=== PATIENT | male | born 1940 | race African-American/Black ===

== ENCOUNTER 2018-05-17 11:21 | Inpatient (IN) | payer MEDICARE, MEDICAID ==
[~2018-05-17] VITALS: Ht 167.6 cm; Wt 79.8 kg
[2018-05-17 11:25] VITALS: BP 145/65
[2018-05-17] MEDS ORDERED: DEXILANT60 MG ORAL (11:29)
[2018-05-17] MEDS ORDERED: COLCRYS0.6 M1 PO (11:29)
[2018-05-17] MEDS ORDERED: CYMBALTA30 MG ORAL (11:29)
[2018-05-17] MEDS ORDERED: TRULICITY1.5 MG/0.5 SQ (11:29)
[2018-05-17] MEDS ORDERED: LANTUS SOL100 UNIT/1 SUBQ (11:29)
[2018-05-17] MEDS ORDERED: LYRICA75 M1 ORAL (11:29)
[2018-05-17] MEDS ORDERED: BACLOFEN20 MG ORAL (11:29)
[2018-05-17] MEDS ORDERED: COZAAR50 MG ORAL (11:31)
[2018-05-17] MEDS ORDERED: NORVASC10 MG ORAL (11:31)
[2018-05-17] MEDS ORDERED: STRATTERA 25MG25 MG ORAL (11:41)
[2018-05-17] MEDS ORDERED: REQUIP1 MG ORAL (11:41)
[2018-05-17] MEDS ORDERED: CARDURA4 MG ORAL (11:41)
[2018-05-17] MEDS ORDERED: LIPITOR20 MG ORAL (11:46)
[2018-05-17] MEDS ORDERED: HUMALOG100 UNIT/3 SUBQ (11:46)
[2018-05-17] MEDS ORDERED: WARFARIN SODIUM5 MG ORAL (11:46)
[2018-05-17] MEDS ORDERED: NOVOLOG100 UNIT/3 SUBQ (11:46)
[2018-05-17] MEDS ORDERED: ULORIC40 MG ORAL (11:46)
[2018-05-17] MEDS ORDERED: HYDRALAZINE HCL50 MG ORAL (11:46)
[2018-05-17] MEDS ORDERED: JANUMET XR 1001 EACH ORAL (11:46)
[2018-05-17] MEDS ORDERED: Sodium Chloride 500ML 500 ML IV ONE (11:49)
[2018-05-17 12:00] VITALS: BP 145/65
[2018-05-17] MEDS ORDERED: Nitroglycerin Subl 0.4mg tab SL PRN ×2 (12:00→14:30)
[2018-05-17 12:05] LABS: BASOPHILS % (AUTO) 1.1 % (0.0-2.0); EOSINOPHILS % (AUTO) 3.4 % (0.0-3.0); HEMATOCRIT 36.4 % (42.0-52.0); HEMOGLOBIN 12.6 G/DL (14.2-18.0); MEAN CORPUSCULAR VOLUME 89 FL (80-99); MONOCYTES % (AUTO) 7.8 % (1.0-10.0); NEUTROPHILS % (AUTO) 59.6 % (45.0-75.0); PLATELET COUNT 140 K/UL (150-450); RED BLOOD COUNT 4.11 M/UL (4.70-6.10); RED CELL DISTRIBUTION WIDTH 11.2 % (11.6-14.8); WHITE BLOOD COUNT 4.5 K/UL (4.8-10.8)
--- NOTE | 2018-05-17 12:23 | Diagnostic Imaging Report ---
Indication: Dyspnea Comparison: 11/18/2007 A single view chest radiograph was obtained. Findings: Cardiomediastinal appearance is within normal limits for age. Pulmonary vascularity is appropriate. The diaphragmatic contour is smooth and costophrenic angles are sharp. No pleural effusions are identified. The bones are unremarkable. Impression: No acute findings
[2018-05-17 12:28] LABS: ALANINE AMINOTRANSFERASE 36 U/L (12-78); ALBUMIN 2.8 G/DL (3.4-5.0); ALBUMIN/GLOBULIN RATIO 0.7 (1.0-2.7); ALKALINE PHOSPHATASE 130 U/L (46-116); ANION GAP 9 mmol/L (5-15); ASPARTATE AMINO TRANSFERASE 20 U/L (15-37); BILIRUBIN,TOTAL 0.4 MG/DL (0.2-1.0); BLOOD UREA NITROGEN 24 mg/dL (7-18); CARBON DIOXIDE 25 MMOL/L (21-32); CHLORIDE 101 MMOL/L (98-107); CREATININE 1.9 MG/DL (0.55-1.30); POTASSIUM 3.4 MMOL/L (3.5-5.1); SODIUM 135 MMOL/L (136-145)
[2018-05-17] MEDS ORDERED: Insulin Human Regular 100units/ml 3ml IV ONE (12:45)
[2018-05-17] MEDS ORDERED: NS w/KCl 40mEq 1,000 ML IV SCH (12:45)
[2018-05-17 13:01] LABS: APPEARANCE,URINE CLEAR; BILIRUBIN, URINE NEGATIVE (NEGATIVE); COLOR,URINE PALE YELLOW; GLUCOSE, URINE (UA) 4+ (NEGATIVE); KETONES,URINE NEGATIVE (NEGATIVE); LEUKOCYTE ESTERASE ,URINE NEGATIVE (NEGATIVE); NITRITE,URINE NEGATIVE (NEGATIVE); PH,URINE 6 (4.5-8.0); PROTEIN,URINE 3+ (NEGATIVE); UROBILINOGEN,URINE NORMAL MG/DL (0.0-1.0)
[2018-05-17 13:21] VITALS: BP 151/69
[2018-05-17] MEDS ORDERED: Miralax 17gm pkt ORAL PRN (14:30)
[2018-05-17] MEDS ORDERED: Enalaprilat 2.5mg/2ml Inj IV PRN (14:30)
[2018-05-17] MEDS ORDERED: Ketorolac 30mg Inj IV PRN (14:30)
[2018-05-17] MEDS ORDERED: Albuterol/Ipratropium 3ml neb HHN PRN (14:30)
[2018-05-17] MEDS ORDERED: dilTIAZem HCl 25mg/5ml Inj IV PRN (14:30)
--- NOTE | 2018-05-17 14:32 | Emergency Room Report ---
History of Present Illness General Chief Complaint: Dizziness Source: Patient, Medical Record, EMS Present Illness HPI 78-year-old male presents ED for evaluation. Patient had adult daycare today when started to feel dizzy and felt chest tightness. Denies any chest pain. Notes midsternal area for chest tightness. Denies shortness of breath. Accu- Chek critically high. History of diabetes. Denies fevers or chills. No other aggravating relieving factors. Denies any other associated symptoms Allergies: Coded Allergies: No Known Allergies (Verified , 11/16/07) Patient History Past Medical History: none, DM, HTN Past Surgical History: none Pertinent Family History: none Social History: Denies: smoking, alcohol use, drug use Immunizations: UTD Reviewed Nursing Documentation: PMH: Agreed; PSxH: Agreed Nursing Documentation-PMH Hx Cardiac Problems: Yes - ckd,kieran lower ext edema,gout,pvd Hx Hypertension: Yes Hx Diabetes: Yes Review of Systems All Other Systems: negative except mentioned in HPI Physical Exam Vital Signs Date Time Temp Pulse Resp B/P (MAP) Pulse Ox O2 Delivery O2 Flow Rate FiO2 05/17/18 11:11 98.1 90 18 160/80 99 Room Air 98.1 Sp02 EP Interpretation: reviewed, normal General Appearance: no apparent distress, alert, GCS 15, non-toxic Head: normocephalic, atraumatic Eyes: bilateral eye normal inspection, bilateral eye PERRL ENT: hearing grossly normal, normal pharynx, no angioedema, normal voice Neck: full range of motion, supple/symm/no masses Respiratory: chest non-tender, lungs clear, normal breath sounds, speaking full sentences Cardiovascular #1: regular rate, rhythm, no edema Cardiovascular #2: 2+ carotid (R), 2+ carotid (L), 2+ radial (R), 2+ radial (L) , 2+ dorsalis pedis (R), 2+ dorsalis pedis (L) Gastrointestinal: normal bowel sounds, non tender, soft, non-distended, no guarding, no rebound Rectal: deferred Genitourinary: normal inspection, no CVA tenderness Musculoskeletal: back normal, gait/station normal, normal range of motion, non- tender Neurologic: alert, oriented x3, responsive, motor strength/tone normal, sensory intact, speech normal Psychiatric: judgement/insight normal, memory normal, mood/affect normal, no suicidal/homicidal ideation Reflexes: 3+ bicep (R), 3+ bicep (L), 3+ tricep (R), 3+ tricep (L), 3+ knee (R) , 3+ knee (L) Skin: normal color, no rash, warm/dry, well hydrated Lymphatic: no adenopathy Medical Decision Making Diagnostic Impression: Primary Impression: ACS (acute coronary syndrome) Additional Impressions: Hyperglycemia Renal insufficiency ER Course Hospital Course 78-year-old male presents ED complaining of chest tightness, dizziness, critically high accucheck Differential diagnoses include: LA/unstable angina, contusion, muscle strain, DKA Clinical course Patient placed on stretcher. on quality assurance monitor. After initial history and physical I ordered labs, EKG, chest x-ray, IVFs, NTG x 3 labs reviewed- no leukocytosis, hb/hct stable, BUN/Cr elevated, gluocse > 500 no DKA (bicarb, AG ok), trop negative EKG - NSR, no acute ischemic changes interpreted by me Chest x-ray- no acute process Patient given IV fluids. Given aspirin. Given insulin Case discussed with Dr. Ragland and he agreed to accept the patient to his service for further care and support I. I feel this is a highly complex case requiring extensive working including EKG/Rhythm strip, Xray/CT/US, Blood/urine lab work, repeat exams while in ED, and administration of strong opiates/narcotics for pain control, admission to hospital or close patient follow up. Diagnosis - ACS, hyperglycemia admitted to telemetry in serious condition Labs Test 05/17/18 11:38 05/17/18 12:29 White Blood Count 4.5 K/UL (4.8-10.8) Red Blood Count 4.11 M/UL (4.70-6.10) Hemoglobin 12.6 G/DL (14.2-18.0) Hematocrit 36.4 % (42.0-52.0) Mean Corpuscular Volume 89 FL (80-99) Mean Corpuscular Hemoglobin 30.7 PG (27.0-31.0) Mean Corpuscular Hemoglobin Concent 34.6 G/DL (32.0-36.0) Red Cell Distribution Width 11.2 % (11.6-14.8) Platelet Count 140 K/UL (150-450) Mean Platelet Volume 9.0 FL (6.5-10.1) Neutrophils (%) (Auto) 59.6 % (45.0-75.0) Lymphocytes (%) (Auto) 28.0 % (20.0-45.0) Monocytes (%) (Auto) 7.8 % (1.0-10.0) Eosinophils (%) (Auto) 3.4 % (0.0-3.0) Basophils (%) (Auto) 1.1 % (0.0-2.0) Sodium Level 135 MMOL/L (136-145) Potassium Level 3.4 MMOL/L (3.5-5.1) Chloride Level 101 MMOL/L (98-107) Carbon Dioxide Level 25 MMOL/L (21-32) Anion Gap 9 mmol/L (5-15) Blood Urea Nitrogen 24 mg/dL (7-18) Creatinine 1.9 MG/DL (0.55-1.30) Estimat Glomerular Filtration Rate mL/min (>60) Glucose Level 518 MG/DL (74-106) Calcium Level 8.0 MG/DL (8.5-10.1) Magnesium Level 2.1 MG/DL (1.8-2.4) Total Bilirubin 0.4 MG/DL (0.2-1.0) Aspartate Amino Transf (AST/SGOT) 20 U/L (15-37) Alanine Aminotransferase (ALT/SGPT) 36 U/L (12-78) Alkaline Phosphatase 130 U/L (46-116) Troponin I 0.000 ng/mL (0.000-0.056) Pro-B-Type Natriuretic Peptide 720 pg/mL (0-125) Total Protein 6.6 G/DL (6.4-8.2) Albumin 2.8 G/DL (3.4-5.0) Globulin 3.8 g/dL Albumin/Globulin Ratio 0.7 (1.0-2.7) Acetone Level Negative (NEGATIVE) Urine Color Pale yellow Urine Appearance Clear Urine pH 6 (4.5-8.0) Urine Specific [place] 1.015 (1.005-1.035) Urine Protein 3+ (NEGATIVE) Urine Glucose (UA) 4+ (NEGATIVE) Urine Ketones Negative (NEGATIVE) Urine Occult Blood 2+ (NEGATIVE) Urine Nitrite Negative (NEGATIVE) Urine Bilirubin Negative (NEGATIVE) Urine Urobilinogen Normal MG/DL (0.0-1.0) Urine Leukocyte Esterase Negative (NEGATIVE) Urine RBC 5-10 /HPF (0 - 0) Urine WBC 0-2 /HPF (0 - 0) Urine Squamous Epithelial Cells Occasional /LPF Urine Bacteria Occasional /HPF (NONE) EKG Diagnostic Results Rate: normal Rhythm: NSR ST Segments: no acute changes ASA given to the pt in ED: Yes Rhythm Strip Diag. Results EP Interpretation: yes Rhythm: NSR, no PVC's, no ectopy Chest X-Ray Diagnostic Results Chest X-Ray Diagnostic Results : Chest X-Ray Ordered: Yes # of Views/Limited/Complete: 1 View Indication: Chest Pain EP Interpretation: Yes Interpretation: no consolidation, no effusion, no pneumothorax, no acute cardiopulmonary disease Impression: No acute disease Electronically Signed by: Electronically signed by Edilson Stoner MD Last Vital Signs Date Time Temp Pulse Resp B/P (MAP) Pulse Ox O2 Delivery O2 Flow Rate FiO2 05/17/18 13:21 98.7 71 18 151/69 98 Room Air 98.7 Status: improved Disposition: ADMITTED INPATIENT Condition: Serious Referrals: NON PHYSICIAN (PCP) Edilson Stoner MD May 17, 2018 14:32
[2018-05-17] MEDS: Morphine Sulfate 2mg/ml Inj IVP PRN ×2 (15:16→23:29)
--- NOTE | 2018-05-17 18:09 | History & Physical ---
History and Physical History & Physicial Dictated for Int Med-Dr Ragland no. [id number]. Krunal Rose MD May 17, 2018 18:09
[2018-05-17] MEDS: NovoLOG Insulin Flexpen SUBQ SCH ×2 (18:18→20:56)
--- NOTE | 2018-05-17 19:05 | Consultation ---
History of Present Illness General Date patient seen: May 17, 2018 Time patient seen: 18:25 Chief Complaint: Dizziness Present Illness HPI 78 year old male comes to ER for dizziness and chest pain, initial glucose 500, troponin normal, CXR negative acute process. Hx of CKD, DM, PVD, LE edema. Allergies: Coded Allergies: No Known Allergies (Verified , 11/16/07) Medication History Scheduled Amlodipine Besylate (Norvasc), 10 MG ORAL DAILY, (Reported) Atorvastatin Calcium* (Lipitor*), 20 MG ORAL DAILY, (Reported) Baclofen* (Lioresal*), 10 MG ORAL DAILY, (Reported) Colchicine (Colcrys), 0.6 MG PO DAILY, (Reported) Dexlansoprazole (Dexilant), 60 MG ORAL DAILY, (Reported) Doxazosin Mesylate* (Cardura*), 8 MG ORAL DAILY, (Reported) Duloxetine Hcl* (Cymbalta*), 30 MG ORAL DAILY, (Reported) Febuxostat (Uloric), 40 MG ORAL DAILY, (Reported) Hydralazine Hcl* (Hydralazine Hcl*), 50 MG ORAL BID, (Reported) Insulin Glargine (Lantus), 0 SUBQ BEDTIME, (Reported) Losartan Potassium* (Cozaar*), 100 MG ORAL DAILY, (Reported) Nebivolol HCl (Bystolic), 20 MG ORAL DAILY, (Reported) Pregabalin* (Lyrica*), 75 MG ORAL DAILY, (Reported) Ropinirole Hcl* (Requip*), 2 MG ORAL BEDTIME, (Reported) Sitagliptin Phos/Metformin Hcl (Janumet Xr 100-1,000 Mg Tablet), 1 TAB ORAL DAILY, (Reported) Warfarin Sod* (Warfarin Sod*), MG ORAL DAILY, (Reported) Miscellaneous Medications Dulaglutide (Trulicity), 1.5 MG SQ, (Reported) Insulin Aspart* (Novolog*), 0 SUBQ, (Reported) Insulin Lispro (Humalog), 0 SUBQ, (Reported) Patient History Healthcare decision maker Resuscitation status Full Code Advanced Directive on File Review of Systems Constitutional: Reports: no symptoms Eye: Reports: no symptoms ENT: Reports: no symptoms Respiratory: Reports: no symptoms Cardiovascular: Reports: chest pain Genitourinary: Reports: no symptoms Skin: Reports: no symptoms Psychiatric: Reports: no symptoms Neurological: Reports: dizziness Endocrine: Reports: no symptoms Hematologic/Lymphatic: Reports: no symptoms Physical Exam General Appearance: no apparent distress Lines, tubes and drains: central line HEENT: normocephalic Neck: non-tender Respiratory/Chest: chest wall non-tender Cardiovascular/Chest: normal peripheral pulses Abdomen: normal bowel sounds Extremities: normal range of motion, non-pitting Skin Exam: normal pigmentation Neurologic: lead php developer II-XII grossly normal Last 24 Hour Vital Signs Date Time Temp Pulse Resp B/P (MAP) Pulse Ox O2 Delivery O2 Flow Rate FiO2 05/17/18 18:51 98.3 05/17/18 18:21 98.3 05/17/18 16:44 98.3 68 14 169/71 98 Room Air 05/17/18 13:21 98.7 71 18 151/69 98 Room Air 98.7 05/17/18 12:00 79 18 145/65 96 Room Air 05/17/18 11:56 139/90 05/17/18 11:25 98.3 76 18 145/65 96 Room Air 98.3 05/17/18 11:11 98.1 90 18 160/80 99 Room Air 98.1 Laboratory Tests Test 05/17/18 11:38 05/17/18 12:29 White Blood Count 4.5 K/UL (4.8-10.8) L Red Blood Count 4.11 M/UL (4.70-6.10) L Hemoglobin 12.6 G/DL (14.2-18.0) L Hematocrit 36.4 % (42.0-52.0) L Mean Corpuscular Volume 89 FL (80-99) Mean Corpuscular Hemoglobin 30.7 PG (27.0-31.0) Mean Corpuscular Hemoglobin Concent 34.6 G/DL (32.0-36.0) Red Cell Distribution Width 11.2 % (11.6-14.8) L Platelet Count 140 K/UL (150-450) L Mean Platelet Volume 9.0 FL (6.5-10.1) Neutrophils (%) (Auto) 59.6 % (45.0-75.0) Lymphocytes (%) (Auto) 28.0 % (20.0-45.0) Monocytes (%) (Auto) 7.8 % (1.0-10.0) Eosinophils (%) (Auto) 3.4 % (0.0-3.0) H Basophils (%) (Auto) 1.1 % (0.0-2.0) Sodium Level 135 MMOL/L (136-145) L Potassium Level 3.4 MMOL/L (3.5-5.1) L Chloride Level 101 MMOL/L (98-107) Carbon Dioxide Level 25 MMOL/L (21-32) Anion Gap 9 mmol/L (5-15) Blood Urea Nitrogen 24 mg/dL (7-18) H Creatinine 1.9 MG/DL (0.55-1.30) H Estimat Glomerular Filtration Rate mL/min (>60) Glucose Level 518 MG/DL (74-106) *H Calcium Level 8.0 MG/DL (8.5-10.1) L Magnesium Level 2.1 MG/DL (1.8-2.4) Total Bilirubin 0.4 MG/DL (0.2-1.0) Aspartate Amino Transf (AST/SGOT) 20 U/L (15-37) Alanine Aminotransferase (ALT/SGPT) 36 U/L (12-78) Alkaline Phosphatase 130 U/L (46-116) H Troponin I 0.000 ng/mL (0.000-0.056) Pro-B-Type Natriuretic Peptide 720 pg/mL (0-125) H Total Protein 6.6 G/DL (6.4-8.2) Albumin 2.8 G/DL (3.4-5.0) L Globulin 3.8 g/dL Albumin/Globulin Ratio 0.7 (1.0-2.7) L Acetone Level Negative (NEGATIVE) Urine Color Pale yellow Urine Appearance Clear Urine pH 6 (4.5-8.0) Urine Specific [place] 1.015 (1.005-1.035) Urine Protein 3+ (NEGATIVE) H Urine Glucose (UA) 4+ (NEGATIVE) H Urine Ketones Negative (NEGATIVE) Urine Occult Blood 2+ (NEGATIVE) H Urine Nitrite Negative (NEGATIVE) Urine Bilirubin Negative (NEGATIVE) Urine Urobilinogen Normal MG/DL (0.0-1.0) Urine Leukocyte Esterase Negative (NEGATIVE) Urine RBC 5-10 /HPF (0 - 0) H Urine WBC 0-2 /HPF (0 - 0) Urine Squamous Epithelial Cells Occasional /LPF Urine Bacteria Occasional /HPF (NONE) Height (Feet): 5 Height (Inches): 6.00 Weight (Pounds): 176 Medications Current Medications Medications (Trade) Dose Ordered Sig/Golden Route PRN Reason Start Time Stop Time Status Last Admin Dose Admin Acetaminophen (Tylenol) 650 mg Q4H PRN ORAL fever (temp>100.5F) 05/17/18 14:30 06/16/18 14:29 Albuterol/ Ipratropium (Albuterol/ Ipratropium) 3 ml Q4H PRN HHN Shortness of Breath 05/17/18 14:30 05/22/18 14:29 Aspirin (ASA) 162 mg DAILY ORAL 05/18/18 09:00 06/17/18 08:59 Dextrose (Dextrose 50%) 25 ml STAT PRN IV Hypoglycemia 05/17/18 14:45 06/16/18 14:44 Dextrose (Dextrose 50%) 50 ml STAT PRN IV Hypoglycemia 05/17/18 14:30 06/16/18 14:29 Diltiazem HCl (Cardizem) 10 mg Q1H PRN IV heart rate more than 120, 05/17/18 14:30 06/16/18 14:29 Enalaprilat (Vasotec) 2.5 mg Q6H PRN IV sbp more than 160 05/17/18 14:30 06/16/18 14:29 Heparin Sodium (Porcine) (Heparin 5000 units/ml) 5,000 units EVERY 8 HOURS SUBQ 05/17/18 22:00 06/16/18 21:59 Insulin Aspart (NovoLOG) BEFORE MEALS AND HS SUBQ 05/17/18 16:30 06/16/18 16:29 05/17/18 18:18 Ketorolac Tromethamine (Toradol 30mg) 30 mg Q6H PRN IV moderate pain ( 4-6) 05/17/18 14:30 05/22/18 14:29 05/17/18 18:21 Morphine Sulfate (Morphine Sulfate) 2 mg Q4H PRN IVP severe Pain (Pain Scale 7-10) 05/17/18 14:30 05/24/18 14:29 05/17/18 15:16 Nitroglycerin (Ntg) 0.4 mg Q5M PRN SL Prn Chest Pain 6/28/18 14:30 06/16/18 14:29 Ondansetron HCl (Zofran) 4 mg Q6H PRN IVP Nausea & Vomiting 05/17/18 14:30 06/16/18 14:29 Pantoprazole (Protonix) 40 mg DAILY ORAL 05/18/18 09:00 06/17/18 08:59 Polyethylene Glycol (Miralax) 17 gm DAILYPRN PRN ORAL Constipation 05/17/18 14:30 06/16/18 14:29 Temazepam (Restoril) 15 mg HSPRN PRN ORAL Insomnia 05/17/18 14:30 05/24/18 14:29 Assessment/Plan Status: stable Assessment/Plan Assessment Chest pain CKD DM Hyperglycemia Dizziness Plan 1) Serial troponin and EKG 2) Aspirin 3) Nitro prn chest pain 4) Stress test - lexiscan cardiolite after ACS negative (risk factor DM) 5) Statin 6) Strict glucose control Braxton Cabrales M.D. May 17, 2018 19:05
[2018-05-17 20:00] VITALS: BP 160/90
--- NOTE | 2018-05-17 20:31 | History and Physical Report ---
DATE OF ADMISSION: 05/17/2018 CHIEF COMPLAINT: The patient is a 78-year-old male who presents with chief complaint of chest pain, dizziness and elevated blood sugar. HISTORY OF PRESENT ILLNESS: The patient has a history of diabetes type 2. The patient is on Lantus and Aspart sliding scale at home. The patient also takes Sitagliptin and metformin. The patient was at his adult daycare today, 05/17/2018. The patient experienced sudden dizziness. The patient also had chest pain. Chest pain was substernal. There was no radiation to the jaw or to the shoulder. The patient [facility]. The patient states his blood sugar was elevated to 480. The patient was transferred to [facility] emergency room. The patient is admitted with chest pain to rule out acute coronary syndrome. PAST MEDICAL HISTORY: Significant for 1. Type 2 diabetes. 2. Hypertension. 3. Hypercholesterolemia. 4. Chronic renal failure, stage 3. 5. Gout. 6. Gastroesophageal reflux disease. PAST SURGICAL HISTORY: Significant for 1. Colon resection secondary to diverticulitis. 2. Colostomy placement. 3. Colostomy reversal. 4. Left inguinal hernia repair. CURRENT MEDICATIONS: 1. Baclofen 10 mg one tablet p.o. daily. 2. Colcrys 0.6 mg by p.o. daily. 3. Cymbalta 30 mg p.o. daily. 4. Dexilant 60 mg p.o. daily. 5. Doxazosin 8 mg p.o. at bedtime. 6. Hydralazine 50 mg p.o. twice daily. 7. Aspart insulin sliding scale. 8. Lantus 30 units subcutaneously at bedtime. 9. Lipitor 20 mg p.o. daily. 10. Nebivolol 20 mg p.o. daily. 11. Lyrica 75 mg p.o. daily. 12. Requip 2 mg p.o. at bedtime. 13. Sitagliptin/metformin 100/1000 one tablet p.o. daily. 14. Uloric 40 mg p.o. daily. 15. Xarelto 20 mg p.o. at bedtime. ALLERGIES: No known drug allergies. SOCIAL HISTORY: The patient is and lives with his . The patient denies tobacco use. The patient admits to rare alcohol use. REVIEW OF SYSTEMS: CONSTITUTIONAL: The patient denies weight loss or weight gain. The patient denies fevers or chills. HEENT: The patient denies ear or throat pain. The patient denies headache. CARDIOVASCULAR: The patient complains of chest pain as above. The patient denies palpitations. CHEST: The patient denies wheeze or shortness of breath. ABDOMEN: The patient denies nausea, vomiting, diarrhea, or constipation. GENITOURINARY: The patient denies dysuria or increased frequency of urination. NEUROMUSCULAR: The patient denies seizures or generalized weakness. PHYSICAL EXAMINATION: GENERAL: The patient is well developed and well nourished male, in no apparent distress. VITAL SIGNS: Temperature 98.1 degrees, respirations 18, pulse 90, and blood pressure 160/80. HEENT: Pupils are equal and responsive to light and accommodation. Extraocular movements are intact. NECK: Supple without lymphadenopathy. CHEST: Lungs are clear to auscultation bilaterally without wheezes or rales. CARDIOVASCULAR: Regular rate. S1 and S2 normal without murmurs, rubs, or gallops. ABDOMEN: Soft, nontender, nondistended. Positive bowel sounds. No evidence of hepatosplenomegaly. Currently, no rebound or guarding noted. EXTREMITIES: A 2+ pitting edema at bilateral ankles. Otherwise, without cyanosis or clubbing. NEUROLOGIC: Cranial nerves II through XII are grossly intact without focal deficits. Motor strength is 5/5 bilaterally. Deep tendon reflexes are 2+ plantar. LABORATORY AND DIAGNOSTIC DATA: WBC 4.5, hemoglobin 12.6, hematocrit 36.4 and platelets 140,000. Sodium 135, potassium 3.4, chloride 101, CO2 25, BUN 24, creatinine 1.9 and glucose elevated 518. BNP elevated at 720. Troponin normal at 0.0. Chest x-ray was reported as no acute disease. ASSESSMENT: This is a 78-year-old male 1. Chest pain. 2. Uncontrolled diabetes. 3. Edema of the bilateral ankles. 4. Vertigo. 5. Diabetes type 2. 6. Hypercholesterolemia. 7. Hypertension. 8. Renal failure. 9. Gout. 10. Gastroesophageal reflux disease. TREATMENT: 1. Uncontrolled diabetes. An Endocrinology consultation has been obtained with Dr. Segundo Dejesus. The patient has been started on NovoLog sliding scale. We will follow recommendation of Endocrinology. 2. Chest pain. A Cardiology consultation has been obtained with Dr. Cabrales. Serial troponin levels will be performed. The patient may require a Cardiolite stress test during this hospitalization. We will follow recommendation of Cardiology. 3. Vertigo, this may be secondary to uncontrolled diabetes or chest pain as above. 4. Hypercholesteremia. Continue Lipitor as above. 5. Hypertension. Continue hydralazine as above. 6. Renal failure. A Nephrology consultation has been obtained with Dr. Pickering. 7. Gout. Continue Uloric as above. 8. Gastroesophageal reflux disease. Krunal Rose M.D. DR: FRANCOIS JOB#: [id number] CC:
[2018-05-17] MEDS: Heparin 5000 units/ml inj SUBQ SCH (21:41)
[2018-05-18] VITALS: BP 158/77
[2018-05-18 04:00] VITALS: BP 153/77
[2018-05-18] MEDS: Heparin 5000 units/ml inj SUBQ SCH ×3 (05:52→21:40)
[2018-05-18] MEDS: NovoLOG Insulin Flexpen SUBQ SCH ×5 (05:53→21:39)
[2018-05-18 07:43] LABS: BASOPHILS % (AUTO) 0.9 % (0.0-2.0); EOSINOPHILS % (AUTO) 6.4 % (0.0-3.0); HEMATOCRIT 39.4 % (42.0-52.0); HEMOGLOBIN 13.7 G/DL (14.2-18.0); LYMPHOCYTES % (AUTO) 32.6 % (20.0-45.0); MEAN CORPUSCULAR VOLUME 89 FL (80-99); MONOCYTES % (AUTO) 6.5 % (1.0-10.0); NEUTROPHILS % (AUTO) 53.7 % (45.0-75.0); PLATELET COUNT 154 K/UL (150-450); RED BLOOD COUNT 4.43 M/UL (4.70-6.10); RED CELL DISTRIBUTION WIDTH 11.6 % (11.6-14.8); WHITE BLOOD COUNT 4.4 K/UL (4.8-10.8)
[2018-05-18 08:00] VITALS: BP 144/66
[2018-05-18 08:31] LABS: CHOLESTEROL 169 MG/DL (< 200); HDL CHOLESTEROL 39 MG/DL (40-60); TRIGLYCERIDES 214 MG/DL (30-150)
[2018-05-18] MEDS: Aspirin Baby 81mg ORAL SCH (09:16)
[2018-05-18 12:00] VITALS: BP 152/80
--- NOTE | 2018-05-18 12:05 | Consultation ---
History of Present Illness General Date patient seen: May 18, 2018 Chief Complaint: Dizziness Present Illness HPI 78-year-old male who presents with HX chest pain, dizziness and elevated blood sugar. The pt stated that he has issues with sleep and stated that he is "sad and stressed about his legs." the pt stated that at times has sleeping issues and feels sad most of the day. The pt stated that he would agree to a pill that he takes the medication at night however no pills during the day. Allergies: Coded Allergies: No Known Allergies (Verified , 11/16/07) Medication History Scheduled Amlodipine Besylate (Norvasc), 10 MG ORAL DAILY, (Reported) Atorvastatin Calcium* (Lipitor*), 20 MG ORAL DAILY, (Reported) Baclofen* (Lioresal*), 10 MG ORAL DAILY, (Reported) Colchicine (Colcrys), 0.6 MG PO DAILY, (Reported) Dexlansoprazole (Dexilant), 60 MG ORAL DAILY, (Reported) Doxazosin Mesylate* (Cardura*), 8 MG ORAL DAILY, (Reported) Duloxetine Hcl* (Cymbalta*), 30 MG ORAL DAILY, (Reported) Febuxostat (Uloric), 40 MG ORAL DAILY, (Reported) Hydralazine Hcl* (Hydralazine Hcl*), 50 MG ORAL BID, (Reported) Insulin Glargine (Lantus), 0 SUBQ BEDTIME, (Reported) Losartan Potassium* (Cozaar*), 100 MG ORAL DAILY, (Reported) Nebivolol HCl (Bystolic), 20 MG ORAL DAILY, (Reported) Pregabalin* (Lyrica*), 75 MG ORAL DAILY, (Reported) Ropinirole Hcl* (Requip*), 2 MG ORAL BEDTIME, (Reported) Sitagliptin Phos/Metformin Hcl (Janumet Xr 100-1,000 Mg Tablet), 1 TAB ORAL DAILY, (Reported) Warfarin Sod* (Warfarin Sod*), MG ORAL DAILY, (Reported) Miscellaneous Medications Dulaglutide (Trulicity), 1.5 MG SQ, (Reported) Insulin Aspart* (Novolog*), 0 SUBQ, (Reported) Insulin Lispro (Humalog), 0 SUBQ, (Reported) Patient History Limited by: medical condition History Provided By: Patient, Medical Record, PMD Healthcare decision maker Resuscitation status Full Code Advanced Directive on File Past Medical/Surgical History Past Medical/Surgical History: (1) Hyperglycemia (2) Renal insufficiency (3) ACS (acute coronary syndrome) (4) Diabetes mellitus (5) CAD (coronary artery disease) (6) HTN (hypertension) Review of Systems Psychiatric: Reports: prior hx, anxiety, depressed feelings, emotional problems Physical Exam General Appearance: no apparent distress, alert Neurologic: alert, oriented x 3, depressed affect Last 24 Hour Vital Signs Date Time Temp Pulse Resp B/P (MAP) Pulse Ox O2 Delivery O2 Flow Rate FiO2 05/18/18 08:29 70 16 Room Air 21 05/18/18 04:00 67 05/18/18 04:00 97.3 68 19 153/77 98 Room Air 97.3 05/18/18 00:00 97.5 62 18 158/77 96 Room Air 97.5 05/18/18 00:00 67 05/17/18 20:00 97.9 66 19 160/90 100 Room Air 97.9 05/17/18 20:00 67 05/17/18 18:51 98.3 05/17/18 18:21 98.3 05/17/18 16:44 98.3 68 14 169/71 98 Room Air 05/17/18 13:21 98.7 71 18 151/69 98 Room Air 98.7 Intake and Output 05/17/18 05/18/18 19:00 07:00 # Voids 2 3 Laboratory Tests Test 05/17/18 12:29 05/17/18 21:43 05/18/18 06:35 Urine Color Pale yellow Urine Appearance Clear Urine pH 6 (4.5-8.0) Urine Specific [place] 1.015 (1.005-1.035) Urine Protein 3+ (NEGATIVE) H Urine Glucose (UA) 4+ (NEGATIVE) H Urine Ketones Negative (NEGATIVE) Urine Occult Blood 2+ (NEGATIVE) H Urine Nitrite Negative (NEGATIVE) Urine Bilirubin Negative (NEGATIVE) Urine Urobilinogen Normal MG/DL (0.0-1.0) Urine Leukocyte Esterase Negative (NEGATIVE) Urine RBC 5-10 /HPF (0 - 0) H Urine WBC 0-2 /HPF (0 - 0) Urine Squamous Epithelial Cells Occasional /LPF Urine Bacteria Occasional /HPF (NONE) Troponin I 0.000 ng/mL (0.000-0.056) 0.000 ng/mL (0.000-0.056) White Blood Count 4.4 K/UL (4.8-10.8) L Red Blood Count 4.43 M/UL (4.70-6.10) L Hemoglobin 13.7 G/DL (14.2-18.0) L Hematocrit 39.4 % (42.0-52.0) L Mean Corpuscular Volume 89 FL (80-99) Mean Corpuscular Hemoglobin 31.0 PG (27.0-31.0) Mean Corpuscular Hemoglobin Concent 34.8 G/DL (32.0-36.0) Red Cell Distribution Width 11.6 % (11.6-14.8) Platelet Count 154 K/UL (150-450) Mean Platelet Volume 8.8 FL (6.5-10.1) Neutrophils (%) (Auto) 53.7 % (45.0-75.0) Lymphocytes (%) (Auto) 32.6 % (20.0-45.0) Monocytes (%) (Auto) 6.5 % (1.0-10.0) Eosinophils (%) (Auto) 6.4 % (0.0-3.0) H Basophils (%) (Auto) 0.9 % (0.0-2.0) Prothrombin Time 10.0 SEC (9.30-11.50) Prothromb Time International Ratio 1.0 (0.9-1.1) Activated Partial Thromboplast Time 27 SEC (23-33) C-Reactive Protein, Quantitative 1.9 mg/dL (0.00-0.90) H Pro-B-Type Natriuretic Peptide 461 pg/mL (0-125) H Triglycerides Level 214 MG/DL (30-150) H Cholesterol Level 169 MG/DL (< 200) LDL Cholesterol 105 mg/dL (<100) H HDL Cholesterol 39 MG/DL (40-60) L Cholesterol/HDL Ratio 4.3 (3.3-4.4) Thyroid Stimulating Hormone (TSH) 0.993 uiU/mL (0.358-3.740) Height (Feet): 5 Height (Inches): 6.00 Weight (Pounds): 176 Medications Current Medications Medications (Trade) Dose Ordered Sig/Golden Route PRN Reason Start Time Stop Time Status Last Admin Dose Admin Acetaminophen (Tylenol) 650 mg Q4H PRN ORAL fever (temp>100.5F) 05/17/18 14:30 06/16/18 14:29 Albuterol/ Ipratropium (Albuterol/ Ipratropium) 3 ml Q4H PRN HHN Shortness of Breath 05/17/18 14:30 05/22/18 14:29 Aspirin (ASA) 162 mg DAILY ORAL 05/18/18 09:00 06/17/18 08:59 05/18/18 09:16 Dextrose (Dextrose 50%) 25 ml STAT PRN IV Hypoglycemia 05/17/18 14:45 06/16/18 14:44 Dextrose (Dextrose 50%) 50 ml STAT PRN IV Hypoglycemia 05/17/18 14:30 06/16/18 14:29 Diltiazem HCl (Cardizem) 10 mg Q1H PRN IV heart rate more than 120, 05/17/18 14:30 06/16/18 14:29 Enalaprilat (Vasotec) 2.5 mg Q6H PRN IV sbp more than 160 05/17/18 14:30 06/16/18 14:29 Heparin Sodium (Porcine) (Heparin 5000 units/ml) 5,000 units EVERY 8 HOURS SUBQ 05/17/18 22:00 06/16/18 21:59 05/18/18 05:52 Insulin Aspart (NovoLOG) BEFORE MEALS AND HS SUBQ 05/17/18 16:30 06/16/18 16:29 05/18/18 11:59 Ketorolac Tromethamine (Toradol 30mg) 30 mg Q6H PRN IV moderate pain ( 4-6) 05/17/18 14:30 05/22/18 14:29 05/17/18 18:21 Morphine Sulfate (Morphine Sulfate) 2 mg Q4H PRN IVP severe Pain (Pain Scale 7-10) 05/17/18 14:30 05/24/18 14:29 05/17/18 23:29 Nitroglycerin (Ntg) 0.4 mg Q5M PRN SL Prn Chest Pain 05/17/18 14:30 06/16/18 14:29 Ondansetron HCl (Zofran) 4 mg Q6H PRN IVP Nausea & Vomiting 05/17/18 14:30 06/16/18 14:29 Pantoprazole (Protonix) 40 mg DAILY ORAL 05/18/18 09:00 06/17/18 08:59 05/18/18 09:16 Polyethylene Glycol (Miralax) 17 gm DAILYPRN PRN ORAL Constipation 05/17/18 14:30 06/16/18 14:29 Temazepam (Restoril) 15 mg HSPRN PRN ORAL Insomnia 05/17/18 14:30 05/24/18 14:29 Assessment/Plan Status: stable Assessment/Plan MDD Anxiety d/o -Remeron 7.5 qhs -the pt was provided with jazlyn/Rena Murillo M.D. May 18, 2018 12:05
--- NOTE | 2018-05-18 12:14 | Consultation ---
History of Present Illness General Date patient seen: May 18, 2018 Chief Complaint: Dizziness Present Illness HPI 78-year-old male with hx of CAD, HTN, DM, presented ED for evaluation. Patient had adult daycare today when started to feel dizzy and felt chest tightness. Notes midsternal area for chest tightness. Denies shortness of breath. Denies fevers or chills. No other aggravating relieving factors. Denies any other associated symptoms. Allergies: Coded Allergies: No Known Allergies (Verified , 11/16/07) Medication History Scheduled Amlodipine Besylate (Norvasc), 10 MG ORAL DAILY, (Reported) Atorvastatin Calcium* (Lipitor*), 20 MG ORAL DAILY, (Reported) Baclofen* (Lioresal*), 10 MG ORAL DAILY, (Reported) Colchicine (Colcrys), 0.6 MG PO DAILY, (Reported) Dexlansoprazole (Dexilant), 60 MG ORAL DAILY, (Reported) Doxazosin Mesylate* (Cardura*), 8 MG ORAL DAILY, (Reported) Duloxetine Hcl* (Cymbalta*), 30 MG ORAL DAILY, (Reported) Febuxostat (Uloric), 40 MG ORAL DAILY, (Reported) Hydralazine Hcl* (Hydralazine Hcl*), 50 MG ORAL BID, (Reported) Insulin Glargine (Lantus), 0 SUBQ BEDTIME, (Reported) Losartan Potassium* (Cozaar*), 100 MG ORAL DAILY, (Reported) Nebivolol HCl (Bystolic), 20 MG ORAL DAILY, (Reported) Pregabalin* (Lyrica*), 75 MG ORAL DAILY, (Reported) Ropinirole Hcl* (Requip*), 2 MG ORAL BEDTIME, (Reported) Sitagliptin Phos/Metformin Hcl (Janumet Xr 100-1,000 Mg Tablet), 1 TAB ORAL DAILY, (Reported) Warfarin Sod* (Warfarin Sod*), MG ORAL DAILY, (Reported) Miscellaneous Medications Dulaglutide (Trulicity), 1.5 MG SQ, (Reported) Insulin Aspart* (Novolog*), 0 SUBQ, (Reported) Insulin Lispro (Humalog), 0 SUBQ, (Reported) Patient History Healthcare decision maker Resuscitation status Full Code Advanced Directive on File Review of Systems All Other Systems: negative except mentioned in HPI Physical Exam General Appearance: WD/WN, no apparent distress Lines, tubes and drains: peripheral HEENT: normocephalic, atraumatic Neck: non-tender, normal alignment Respiratory/Chest: chest wall non-tender, lungs clear, normal breath sounds Breasts: no masses Cardiovascular/Chest: normal peripheral pulses Abdomen: normal bowel sounds Extremities: normal range of motion Skin Exam: normal pigmentation Last 24 Hour Vital Signs Date Time Temp Pulse Resp B/P (MAP) Pulse Ox O2 Delivery O2 Flow Rate FiO2 05/18/18 08:29 70 16 Room Air 21 05/18/18 04:00 67 05/18/18 04:00 97.3 68 19 153/77 98 Room Air 97.3 05/18/18 00:00 97.5 62 18 158/77 96 Room Air 97.5 05/18/18 00:00 67 05/17/18 20:00 97.9 66 19 160/90 100 Room Air 97.9 05/17/18 20:00 67 05/17/18 18:51 98.3 05/17/18 18:21 98.3 05/17/18 16:44 98.3 68 14 169/71 98 Room Air 05/17/18 13:21 98.7 71 18 151/69 98 Room Air 98.7 Intake and Output 05/17/18 05/18/18 19:00 07:00 # Voids 2 3 Laboratory Tests Test 05/17/18 12:29 05/17/18 21:43 05/18/18 06:35 Urine Color Pale yellow Urine Appearance Clear Urine pH 6 (4.5-8.0) Urine Specific [place] 1.015 (1.005-1.035) Urine Protein 3+ (NEGATIVE) H Urine Glucose (UA) 4+ (NEGATIVE) H Urine Ketones Negative (NEGATIVE) Urine Occult Blood 2+ (NEGATIVE) H Urine Nitrite Negative (NEGATIVE) Urine Bilirubin Negative (NEGATIVE) Urine Urobilinogen Normal MG/DL (0.0-1.0) Urine Leukocyte Esterase Negative (NEGATIVE) Urine RBC 5-10 /HPF (0 - 0) H Urine WBC 0-2 /HPF (0 - 0) Urine Squamous Epithelial Cells Occasional /LPF Urine Bacteria Occasional /HPF (NONE) Troponin I 0.000 ng/mL (0.000-0.056) 0.000 ng/mL (0.000-0.056) White Blood Count 4.4 K/UL (4.8-10.8) L Red Blood Count 4.43 M/UL (4.70-6.10) L Hemoglobin 13.7 G/DL (14.2-18.0) L Hematocrit 39.4 % (42.0-52.0) L Mean Corpuscular Volume 89 FL (80-99) Mean Corpuscular Hemoglobin 31.0 PG (27.0-31.0) Mean Corpuscular Hemoglobin Concent 34.8 G/DL (32.0-36.0) Red Cell Distribution Width 11.6 % (11.6-14.8) Platelet Count 154 K/UL (150-450) Mean Platelet Volume 8.8 FL (6.5-10.1) Neutrophils (%) (Auto) 53.7 % (45.0-75.0) Lymphocytes (%) (Auto) 32.6 % (20.0-45.0) Monocytes (%) (Auto) 6.5 % (1.0-10.0) Eosinophils (%) (Auto) 6.4 % (0.0-3.0) H Basophils (%) (Auto) 0.9 % (0.0-2.0) Prothrombin Time 10.0 SEC (9.30-11.50) Prothromb Time International Ratio 1.0 (0.9-1.1) Activated Partial Thromboplast Time 27 SEC (23-33) C-Reactive Protein, Quantitative 1.9 mg/dL (0.00-0.90) H Pro-B-Type Natriuretic Peptide 461 pg/mL (0-125) H Triglycerides Level 214 MG/DL (30-150) H Cholesterol Level 169 MG/DL (< 200) LDL Cholesterol 105 mg/dL (<100) H HDL Cholesterol 39 MG/DL (40-60) L Cholesterol/HDL Ratio 4.3 (3.3-4.4) Thyroid Stimulating Hormone (TSH) 0.993 uiU/mL (0.358-3.740) Height (Feet): 5 Height (Inches): 6.00 Weight (Pounds): 176 Medications Current Medications Medications (Trade) Dose Ordered Sig/Golden Route PRN Reason Start Time Stop Time Status Last Admin Dose Admin Acetaminophen (Tylenol) 650 mg Q4H PRN ORAL fever (temp>100.5F) 05/17/18 14:30 06/16/18 14:29 Albuterol/ Ipratropium (Albuterol/ Ipratropium) 3 ml Q4H PRN HHN Shortness of Breath 05/17/18 14:30 05/22/18 14:29 Aspirin (ASA) 162 mg DAILY ORAL 05/18/18 09:00 06/17/18 08:59 05/18/18 09:16 Dextrose (Dextrose 50%) 25 ml STAT PRN IV Hypoglycemia 05/17/18 14:45 06/16/18 14:44 Dextrose (Dextrose 50%) 50 ml STAT PRN IV Hypoglycemia 05/17/18 14:30 06/16/18 14:29 Diltiazem HCl (Cardizem) 10 mg Q1H PRN IV heart rate more than 120, 05/17/18 14:30 06/16/18 14:29 Enalaprilat (Vasotec) 2.5 mg Q6H PRN IV sbp more than 160 05/17/18 14:30 06/16/18 14:29 Heparin Sodium (Porcine) (Heparin 5000 units/ml) 5,000 units EVERY 8 HOURS SUBQ 05/17/18 22:00 06/16/18 21:59 05/18/18 05:52 Insulin Aspart (NovoLOG) BEFORE MEALS AND HS SUBQ 05/17/18 16:30 06/16/18 16:29 05/18/18 11:59 Ketorolac Tromethamine (Toradol 30mg) 30 mg Q6H PRN IV moderate pain ( 4-6) 05/17/18 14:30 05/22/18 14:29 05/17/18 18:21 Mirtazapine (Remeron) 7.5 mg BEDTIME PRN ORAL INSOMNIA 05/18/18 12:15 06/17/18 12:14 UNV Morphine Sulfate (Morphine Sulfate) 2 mg Q4H PRN IVP severe Pain (Pain Scale 7-10) 05/17/18 14:30 05/24/18 14:29 05/17/18 23:29 Nitroglycerin (Ntg) 0.4 mg Q5M PRN SL Prn Chest Pain 05/17/18 14:30 06/16/18 14:29 Ondansetron HCl (Zofran) 4 mg Q6H PRN IVP Nausea & Vomiting 05/17/18 14:30 06/16/18 14:29 Pantoprazole (Protonix) 40 mg DAILY ORAL 05/18/18 09:00 06/17/18 08:59 05/18/18 09:16 Polyethylene Glycol (Miralax) 17 gm DAILYPRN PRN ORAL Constipation 05/17/18 14:30 06/16/18 14:29 Assessment/Plan Problem List: (1) Hyperglycemia ICD Codes: R73.9 - Hyperglycemia, unspecified SNOMED: 13640663 (2) Renal insufficiency ICD Codes: N28.9 - Disorder of kidney and ureter, unspecified SNOMED: 303686590, 160785084 Georgia Zuniga MD May 18, 2018 12:14
--- NOTE | 2018-05-18 13:11 | Cardiology Report ---
APPROVED REPORT EKG Measurement Heart [id number] Normal sinus rhythm Nonspecific ST and T wave abnormality Possible septal infarct - age undetermined Abnormal ECG
[2018-05-18 16:00] VITALS: BP 164/85
--- NOTE | 2018-05-18 17:08 | Internal Med Progress Note ---
Subjective Date of Service: May 18, 2018 Physician Name Krunal Rose Attending Physician Levon Ragland MD Current Medications Medications (Trade) Dose Ordered Sig/Golden Route PRN Reason Start Time Stop Time Status Last Admin Dose Admin Acetaminophen (Tylenol) 650 mg Q4H PRN ORAL fever (temp>100.5F) 05/17/18 14:30 06/16/18 14:29 Albuterol/ Ipratropium (Albuterol/ Ipratropium) 3 ml Q4H PRN HHN Shortness of Breath 05/17/18 14:30 05/22/18 14:29 Aspirin (ASA) 162 mg DAILY ORAL 05/18/18 09:00 06/17/18 08:59 05/18/18 09:16 Dextrose (Dextrose 50%) 25 ml STAT PRN IV Hypoglycemia 05/17/18 14:45 06/16/18 14:44 Dextrose (Dextrose 50%) 50 ml STAT PRN IV Hypoglycemia 05/17/18 14:30 06/16/18 14:29 Diltiazem HCl (Cardizem) 10 mg Q1H PRN IV heart rate more than 120, 05/17/18 14:30 06/16/18 14:29 Enalaprilat (Vasotec) 2.5 mg Q6H PRN IV sbp more than 160 05/17/18 14:30 06/16/18 14:29 Heparin Sodium (Porcine) (Heparin 5000 units/ml) 5,000 units EVERY 8 HOURS SUBQ 05/17/18 22:00 06/16/18 21:59 05/18/18 15:35 Insulin Aspart (NovoLOG) BEFORE MEALS AND HS SUBQ 05/17/18 16:30 06/16/18 16:29 05/18/18 11:59 Ketorolac Tromethamine (Toradol 30mg) 30 mg Q6H PRN IV moderate pain ( 4-6) 05/17/18 14:30 05/22/18 14:29 05/17/18 18:21 Mirtazapine (Remeron) 7.5 mg QHS PRN ORAL Insomnia 05/18/18 21:00 06/17/18 20:59 Morphine Sulfate (Morphine Sulfate) 2 mg Q4H PRN IVP severe Pain (Pain Scale 7-10) 05/17/18 14:30 05/24/18 14:29 05/17/18 23:29 Nitroglycerin (Ntg) 0.4 mg Q5M PRN SL Prn Chest Pain 05/17/18 14:30 06/16/18 14:29 Ondansetron HCl (Zofran) 4 mg Q6H PRN IVP Nausea & Vomiting 05/17/18 14:30 06/16/18 14:29 Pantoprazole (Protonix) 40 mg DAILY ORAL 05/18/18 09:00 06/17/18 08:59 05/18/18 09:16 Polyethylene Glycol (Miralax) 17 gm DAILYPRN PRN ORAL Constipation 05/17/18 14:30 06/16/18 14:29 Allergies: Coded Allergies: No Known Allergies (Verified , 11/16/07) ROS Limited/Unobtainable: No Constitutional: Reports: no symptoms HEENT: Reports: no symptoms Cardiovascular: Reports: chest pain Respiratory: Reports: no symptoms Gastrointestinal/Abdominal: Reports: no symptoms Genitourinary: Reports: no symptoms Neurologic/Psychiatric: Reports: no symptoms Subjective 78 YO F admitted with chest pain. Await cardiac stress test. Cover for Int Med -Dr Ragland. Objective Last Vital Signs Date Time Temp Pulse Resp B/P (MAP) Pulse Ox O2 Delivery O2 Flow Rate FiO2 05/18/18 12:00 97.7 68 20 152/80 98 Room Air 97.7 05/18/18 08:29 21 General Appearance: WD/WN, no apparent distress, alert EENT: PERRL/EOMI, normal ENT inspection, TMs normal Neck: non-tender, normal alignment, supple, normal inspection Cardiovascular: normal peripheral pulses, normal rate, regular rhythm, no gallop/murmur, no JVD Respiratory/Chest: chest wall non-tender, lungs clear, normal breath sounds, no respiratory distress, no accessory muscle use Abdomen: normal bowel sounds, non tender, soft, no organomegaly, no mass, abnormal bowel sounds Extremities: normal range of motion, non-tender Edema: trace edema, mild edema Neurologic: oil expert II-XII grossly normal, no motor/sensory deficits Skin: normal pigmentation, warm/dry Laboratory Tests Test 05/17/18 21:43 05/18/18 06:35 Troponin I 0.000 ng/mL (0.000-0.056) 0.000 ng/mL (0.000-0.056) White Blood Count 4.4 K/UL (4.8-10.8) L Red Blood Count 4.43 M/UL (4.70-6.10) L Hemoglobin 13.7 G/DL (14.2-18.0) L Hematocrit 39.4 % (42.0-52.0) L Mean Corpuscular Volume 89 FL (80-99) Mean Corpuscular Hemoglobin 31.0 PG (27.0-31.0) Mean Corpuscular Hemoglobin Concent 34.8 G/DL (32.0-36.0) Red Cell Distribution Width 11.6 % (11.6-14.8) Platelet Count 154 K/UL (150-450) Mean Platelet Volume 8.8 FL (6.5-10.1) Neutrophils (%) (Auto) 53.7 % (45.0-75.0) Lymphocytes (%) (Auto) 32.6 % (20.0-45.0) Monocytes (%) (Auto) 6.5 % (1.0-10.0) Eosinophils (%) (Auto) 6.4 % (0.0-3.0) H Basophils (%) (Auto) 0.9 % (0.0-2.0) Prothrombin Time 10.0 SEC (9.30-11.50) Prothromb Time International Ratio 1.0 (0.9-1.1) Activated Partial Thromboplast Time 27 SEC (23-33) C-Reactive Protein, Quantitative 1.9 mg/dL (0.00-0.90) H Pro-B-Type Natriuretic Peptide 461 pg/mL (0-125) H Triglycerides Level 214 MG/DL (30-150) H Cholesterol Level 169 MG/DL (< 200) LDL Cholesterol 105 mg/dL (<100) H HDL Cholesterol 39 MG/DL (40-60) L Cholesterol/HDL Ratio 4.3 (3.3-4.4) Thyroid Stimulating Hormone (TSH) 0.993 uiU/mL (0.358-3.740) Intake and Output 05/17/18 05/18/18 19:00 07:00 # Voids 2 3 Assessment/Plan Problem List: (1) Chest pain Assessment & Plan: See cardiology note. AWait cardiac stress test (2) Edema (3) Vertigo (4) Diabetes mellitus type II, uncontrolled Assessment & Plan: Continue novolog sliding scale. (5) Hypercholesteremia (6) Chronic renal failure, stage 3 (moderate) (7) Gout (8) GERD (gastroesophageal reflux disease) (9) HTN (hypertension) Assessment & Plan: Continue vasotec and cardizem (10) CAD (coronary artery disease) Status: not improved Krunal Rose MD May 18, 2018 17:08
--- NOTE | 2018-05-18 17:31 | General Progress Note ---
Assessment/Plan Problem List: (1) CAD (coronary artery disease) ICD Codes: I25.10 - Atherosclerotic heart disease of [place] coronary artery without angina pectoris SNOMED: 39052719 (2) HTN (hypertension) ICD Codes: I10 - Essential (primary) hypertension SNOMED: 97726674 (3) Chronic renal failure, stage 3 (moderate) ICD Codes: N18.3 - Chronic kidney disease, stage 3 (moderate) SNOMED: 38926773, 435161071 (4) Diabetes mellitus ICD Codes: E11.9 - Type 2 diabetes mellitus without complications SNOMED: 33792681 Assessment/Plan add Levemir 10 units qhs add Novolog 5 units ac tid + NISS Subjective Allergies: Coded Allergies: No Known Allergies (Verified , 11/16/07) All Systems: reviewed and negative except above Subjective events noted Objective Last 24 Hour Vital Signs Date Time Temp Pulse Resp B/P (MAP) Pulse Ox O2 Delivery O2 Flow Rate FiO2 05/18/18 16:00 97.6 72 20 164/85 98 Room Air 97.6 05/18/18 12:00 97.7 68 20 152/80 98 Room Air 97.7 05/18/18 08:29 70 16 Room Air 21 05/18/18 08:00 96.3 68 20 144/66 98 Room Air 96.3 05/18/18 04:00 67 05/18/18 04:00 97.3 68 19 153/77 98 Room Air 97.3 05/18/18 00:00 97.5 62 18 158/77 96 Room Air 97.5 05/18/18 00:00 67 05/17/18 20:00 97.9 66 19 160/90 100 Room Air 97.9 05/17/18 20:00 67 05/17/18 18:51 98.3 05/17/18 18:21 98.3 Intake and Output 05/17/18 05/18/18 19:00 07:00 # Voids 2 3 Laboratory Tests 05/17/18 21:43: Troponin I 0.000 05/18/18 06:35: Troponin I 0.000, White Blood Count 4.4L, Red Blood Count 4.43L, Hemoglobin 13.7L, Hematocrit 39.4L, Mean Corpuscular Volume 89, Mean Corpuscular Hemoglobin 31.0, Mean Corpuscular Hemoglobin Concent 34.8, Red Cell Distribution Width 11.6, Platelet Count 154, Mean Platelet Volume 8.8, Neutrophils (%) (Auto) 53.7, Lymphocytes (%) (Auto) 32.6, Monocytes (%) (Auto) 6.5, Eosinophils (%) (Auto) 6.4H, Basophils (%) (Auto) 0.9, Prothrombin Time 10.0, Prothromb Time International Ratio 1.0, Activated Partial Thromboplast Time 27, C-Reactive Protein, Quantitative 1.9H, Pro-B-Type Natriuretic Peptide 461H, Triglycerides Level 214H, Cholesterol Level 169, LDL Cholesterol 105H, HDL Cholesterol 39L, Cholesterol/HDL Ratio 4.3, Thyroid Stimulating Hormone (TSH ) 0.993 Height (Feet): 5 Height (Inches): 6.00 Weight (Pounds): 176 General Appearance: no apparent distress Neck: normal alignment Cardiovascular: normal rate Respiratory/Chest: lungs clear Abdomen: normal bowel sounds Pelvis: normal external exam Edema: 1+ Arm (L), 1+ Arm (R), 1+ Leg (L), 1+ Leg (R), 1+ Pedal (L), 1+ Pedal ( R), 1+ Generalized Objective Current Medications Medications (Trade) Dose Ordered Sig/Golden Route PRN Reason Start Time Stop Time Status Last Admin Dose Admin Acetaminophen (Tylenol) 650 mg Q4H PRN ORAL fever (temp>100.5F) 05/17/18 14:30 06/16/18 14:29 Albuterol/ Ipratropium (Albuterol/ Ipratropium) 3 ml Q4H PRN HHN Shortness of Breath 05/17/18 14:30 05/22/18 14:29 Aspirin (ASA) 162 mg DAILY ORAL 05/18/18 09:00 06/17/18 08:59 05/18/18 09:16 Dextrose (Dextrose 50%) 25 ml STAT PRN IV Hypoglycemia 05/17/18 14:45 06/16/18 14:44 Dextrose (Dextrose 50%) 50 ml STAT PRN IV Hypoglycemia 05/17/18 14:30 06/16/18 14:29 Diltiazem HCl (Cardizem) 10 mg Q1H PRN IV heart rate more than 120, 05/17/18 14:30 06/16/18 14:29 Docusate Sodium (Colace) 100 mg TWICE A DAY ORAL 05/18/18 18:00 06/17/18 17:59 Enalaprilat (Vasotec) 2.5 mg Q6H PRN IV sbp more than 160 05/17/18 14:30 06/16/18 14:29 Heparin Sodium (Porcine) (Heparin 5000 units/ml) 5,000 units EVERY 8 HOURS SUBQ 05/17/18 22:00 06/16/18 21:59 05/18/18 15:35 Insulin Aspart (NovoLOG) BEFORE MEALS AND HS SUBQ 05/17/18 16:30 06/16/18 16:29 05/18/18 11:59 Ketorolac Tromethamine (Toradol 30mg) 30 mg Q6H PRN IV moderate pain ( 4-6) 05/17/18 14:30 05/22/18 14:29 05/17/18 18:21 Mirtazapine (Remeron) 7.5 mg QHS PRN ORAL Insomnia 05/18/18 21:00 06/17/18 20:59 Morphine Sulfate (Morphine Sulfate) 2 mg Q4H PRN IVP severe Pain (Pain Scale 7-10) 05/17/18 14:30 05/24/18 14:29 05/17/18 23:29 Nitroglycerin (Ntg) 0.4 mg Q5M PRN SL Prn Chest Pain 05/17/18 14:30 06/16/18 14:29 Ondansetron HCl (Zofran) 4 mg Q6H PRN IVP Nausea & Vomiting 05/17/18 14:30 06/16/18 14:29 Pantoprazole (Protonix) 40 mg DAILY ORAL 05/18/18 09:00 06/17/18 08:59 05/18/18 09:16 Polyethylene Glycol (Miralax) 17 gm DAILYPRN PRN ORAL Constipation 05/17/18 14:30 06/16/18 14:29 Item Value Date Time Bedside Blood Glucose 286 mg/dl H 05/18/18 1159 Bedside Blood Glucose 203 mg/dl H 05/18/18 0623 Segundo Dejesus MD May 18, 2018 17:31
[2018-05-18] MEDS: Docusate 100mg cap ORAL SCH (18:34)
[2018-05-18 19:01] LABS: ANION GAP 8 mmol/L (5-15); BLOOD UREA NITROGEN 22 mg/dL (7-18); CALCIUM 8.6 MG/DL (8.5-10.1); CARBON DIOXIDE 25 MMOL/L (21-32); CHLORIDE 104 MMOL/L (98-107); CREATININE 1.6 MG/DL (0.55-1.30); POTASSIUM 4.2 MMOL/L (3.5-5.1); SODIUM 137 MMOL/L (136-145)
[2018-05-18 20:00] VITALS: BP 170/80
[2018-05-18] MEDS ORDERED: Levemir Flexpen SUBQ SCH (21:00)
[2018-05-19] VITALS: BP 156/82
--- NOTE | 2018-05-19 00:49 | Cardiology Progress Note ---
Assessment/Plan Status: stable Assessment/Plan Assessment Chest pain CKD DM Hyperglycemia Dizziness Plan 1) Serial troponin and EKG 2) Aspirin 3) Nitro prn chest pain 4) Stress test - lexiscan cardiolite after ACS negative (risk factor DM) 5) Statin 6) Strict glucose control Subjective Cardiovascular: Reports: no symptoms Respiratory: Reports: no symptoms Gastrointestinal/Abdominal: Reports: no symptoms Genitourinary: Reports: no symptoms Subjective No acute events, no chest pain. Blood pressure elevated Objective Last 24 Hour Vital Signs Date Time Temp Pulse Resp B/P (MAP) Pulse Ox O2 Delivery O2 Flow Rate FiO2 05/18/18 20:00 72 05/18/18 20:00 69 16 Room Air 21 05/18/18 20:00 97.3 68 20 170/80 96 Room Air 97.3 05/18/18 18:34 164/85 05/18/18 16:00 85 05/18/18 16:00 97.6 72 20 164/85 98 Room Air 97.6 05/18/18 12:00 68 05/18/18 12:00 97.7 68 20 152/80 98 Room Air 97.7 05/18/18 08:29 70 16 Room Air 21 05/18/18 08:00 96.3 68 20 144/66 98 Room Air 96.3 05/18/18 08:00 70 05/18/18 04:00 67 05/18/18 04:00 97.3 68 19 153/77 98 Room Air 97.3 EENT: PERRL/EOMI Neck: non-tender Rhythm: NSR Cardiovascular: normal peripheral pulses Respiratory/Chest: chest wall non-tender Abdomen: normal bowel sounds Extremities: normal range of motion 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 Intake and Output 05/18/18 05/19/18 19:00 07:00 Intake Total 925 ml Output Total 250 ml Balance 675 ml Intake Oral 925 ml Output Urine Total 250 ml # Voids 1 Laboratory Tests Test 05/18/18 06:35 05/18/18 18:10 White Blood Count 4.4 K/UL (4.8-10.8) L Red Blood Count 4.43 M/UL (4.70-6.10) L Hemoglobin 13.7 G/DL (14.2-18.0) L Hematocrit 39.4 % (42.0-52.0) L Mean Corpuscular Volume 89 FL (80-99) Mean Corpuscular Hemoglobin 31.0 PG (27.0-31.0) Mean Corpuscular Hemoglobin Concent 34.8 G/DL (32.0-36.0) Red Cell Distribution Width 11.6 % (11.6-14.8) Platelet Count 154 K/UL (150-450) Mean Platelet Volume 8.8 FL (6.5-10.1) Neutrophils (%) (Auto) 53.7 % (45.0-75.0) Lymphocytes (%) (Auto) 32.6 % (20.0-45.0) Monocytes (%) (Auto) 6.5 % (1.0-10.0) Eosinophils (%) (Auto) 6.4 % (0.0-3.0) H Basophils (%) (Auto) 0.9 % (0.0-2.0) Prothrombin Time 10.0 SEC (9.30-11.50) Prothromb Time International Ratio 1.0 (0.9-1.1) Activated Partial Thromboplast Time 27 SEC (23-33) Troponin I 0.000 ng/mL (0.000-0.056) C-Reactive Protein, Quantitative 1.9 mg/dL (0.00-0.90) H Pro-B-Type Natriuretic Peptide 461 pg/mL (0-125) H Triglycerides Level 214 MG/DL (30-150) H Cholesterol Level 169 MG/DL (< 200) LDL Cholesterol 105 mg/dL (<100) H HDL Cholesterol 39 MG/DL (40-60) L Cholesterol/HDL Ratio 4.3 (3.3-4.4) Thyroid Stimulating Hormone (TSH) 0.993 uiU/mL (0.358-3.740) Sodium Level 137 MMOL/L (136-145) Potassium Level 4.2 MMOL/L (3.5-5.1) Chloride Level 104 MMOL/L (98-107) Carbon Dioxide Level 25 MMOL/L (21-32) Anion Gap 8 mmol/L (5-15) Blood Urea Nitrogen 22 mg/dL (7-18) H Creatinine 1.6 MG/DL (0.55-1.30) H Estimat Glomerular Filtration Rate mL/min (>60) Glucose Level 297 MG/DL (74-106) #H Calcium Level 8.6 MG/DL (8.5-10.1) Braxton Cabrales M.D. May 19, 2018 00:49
[2018-05-19] MEDS ORDERED: Lexiscan 0.4mg/5ml syringe IV ONE (01:00)
[2018-05-19] MEDS ORDERED: Lexiscan 0.4mg/5ml syringe IV PRN (02:45)
[2018-05-19 04:00] VITALS: BP 159/84
[2018-05-19] MEDS: NovoLOG Insulin Flexpen SUBQ SCH ×3 (07:09→12:07)
[2018-05-19] MEDS: Heparin 5000 units/ml inj SUBQ SCH (07:11)
--- NOTE | 2018-05-19 07:20 | Pulmonology Progress Note ---
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 factor- diabetes) on aspirin and nitroglycerin as needed stress test as per cardio lipid panel with elevated TG and LDL, started on statin counseled on low-fat low-cholesterol diabetic diet BP management with CCB , ARB- HTZ combo and optimize further as needed hemoglobin A1c -9.4, not at goal blood sugar management with Levemir, premeal insulin and sliding scale insulin, optimize further as needed venous duplex bilateral lower extremity negative check orthostatic VS given dizziness when OOB pain management , pain addressed and controlled monitor renal parameters and electrolytes, avoid nephrotoxic , correct electrolytes as needed creat down to 1.4, likely COLT on CRI psych follows, started on Remeron, RO and ST provided by psych case discussed and evaluated by supervising physician Subjective Allergies: Coded Allergies: No Known Allergies (Verified , 11/16/07) Subjective still with occasional chest pain SOB dizziness when OOB Objective Last 24 Hour Vital Signs Date Time Temp Pulse Resp B/P (MAP) Pulse Ox O2 Delivery O2 Flow Rate FiO2 05/19/18 04:00 97.3 76 21 159/84 93 Room Air 97.3 05/19/18 04:00 72 05/19/18 00:00 73 05/19/18 00:00 97.0 72 21 156/82 97 Room Air 97.0 05/18/18 20:00 72 05/18/18 20:00 69 16 Room Air 21 05/18/18 20:00 97.3 68 20 170/80 96 Room Air 97.3 05/18/18 18:34 164/85 05/18/18 16:00 85 05/18/18 16:00 97.6 72 20 164/85 98 Room Air 97.6 05/18/18 12:00 68 05/18/18 12:00 97.7 68 20 152/80 98 Room Air 97.7 05/18/18 08:29 70 16 Room Air 21 05/18/18 08:00 96.3 68 20 144/66 98 Room Air 96.3 05/18/18 08:00 70 Intake and Output 05/18/18 05/19/18 19:00 07:00 Intake Total 925 ml Output Total 250 ml Balance 675 ml Intake Oral 925 ml Output Urine Total 250 ml # Voids 1 2 Laboratory Tests 05/18/18 18:10: Sodium Level 137, Potassium Level 4.2, Chloride Level 104, Carbon Dioxide Level 25, Anion Gap 8, Blood Urea Nitrogen 22H, Creatinine 1.6H, Estimat Glomerular Filtration Rate , Glucose Level 297#H, Calcium Level 8.6 Current Medications Medications (Trade) Dose Ordered Sig/Golden Route PRN Reason Start Time Stop Time Status Last Admin Dose Admin Acetaminophen (Tylenol) 650 mg Q4H PRN ORAL fever (temp>100.5F) 05/17/18 14:30 06/16/18 14:29 Albuterol/ Ipratropium (Albuterol/ Ipratropium) 3 ml Q4H PRN HHN Shortness of Breath 05/17/18 14:30 05/22/18 14:29 Aspirin (ASA) 162 mg DAILY ORAL 05/18/18 09:00 06/17/18 08:59 05/18/18 09:16 Dextrose (Dextrose 50%) 25 ml STAT PRN IV Hypoglycemia 05/17/18 14:45 06/16/18 14:44 Dextrose (Dextrose 50%) 25 ml STAT PRN IV Hypoglycemia 05/18/18 17:30 06/17/18 17:29 Dextrose (Dextrose 50%) 50 ml STAT PRN IV Hypoglycemia 05/17/18 14:30 06/16/18 14:29 Dextrose (Dextrose 50%) 50 ml STAT PRN IV Hypoglycemia 05/18/18 17:30 06/17/18 17:29 Diltiazem HCl (Cardizem) 10 mg Q1H PRN IV heart rate more than 120, 05/17/18 14:30 06/16/18 14:29 Docusate Sodium (Colace) 100 mg TWICE A DAY ORAL 05/18/18 18:00 06/17/18 17:59 05/18/18 18:34 Enalaprilat (Vasotec) 2.5 mg Q6H PRN IV sbp more than 160 05/17/18 14:30 06/16/18 14:29 05/18/18 18:34 HCTZ/Losartan Potassium (Hyzaar 50-12.5) 1 tab DAILY ORAL 05/19/18 09:00 06/18/18 08:59 Heparin Sodium (Porcine) (Heparin 5000 units/ml) 5,000 units EVERY 8 HOURS SUBQ 05/17/18 22:00 06/16/18 21:59 05/19/18 07:11 Insulin Aspart (NovoLOG) BEFORE MEALS AND HS SUBQ 05/17/18 16:30 06/16/18 16:29 05/19/18 07:09 Insulin Aspart (NovoLOG) 5 units NOVOTIAC SUBQ 05/19/18 06:30 06/18/18 06:29 05/18/18 18:36 Insulin Detemir (Levemir) 10 units BEDTIME SUBQ 05/18/18 21:00 06/17/18 20:59 05/18/18 21:37 Ketorolac Tromethamine (Toradol 30mg) 30 mg Q6H PRN IV moderate pain ( 4-6) 05/17/18 14:30 05/22/18 14:29 05/17/18 18:21 Mirtazapine (Remeron) 7.5 mg QHS PRN ORAL Insomnia 05/18/18 21:00 06/17/18 20:59 Morphine Sulfate (Morphine Sulfate) 2 mg Q4H PRN IVP severe Pain (Pain Scale 7-10) 05/17/18 14:30 05/24/18 14:29 05/17/18 23:29 Nitroglycerin (Ntg) 0.4 mg Q5M PRN SL Prn Chest Pain 05/17/18 14:30 06/16/18 14:29 Ondansetron HCl (Zofran) 4 mg Q6H PRN IVP Nausea & Vomiting 05/17/18 14:30 06/16/18 14:29 Pantoprazole (Protonix) 40 mg DAILY ORAL 05/18/18 09:00 06/17/18 08:59 05/18/18 09:16 Polyethylene Glycol (Miralax) 17 gm DAILYPRN PRN ORAL Constipation 05/17/18 14:30 06/16/18 14:29 05/18/18 21:55 Regadenoson (Lexiscan) 0.4 mg ONCE PRN IV cardiology 6/30/18 02:45 06/18/18 02:44 Lisbet Flores NP May 19, 2018 07:20
[2018-05-19 08:00] VITALS: BP 170/81
[2018-05-19] MEDS ORDERED: Hyzaar 12.5mg/50mg tab ORAL SCH (09:00)
[2018-05-19] MEDS: Aspirin Baby 81mg ORAL SCH (09:18)
[2018-05-19] MEDS: Docusate 100mg cap ORAL SCH (09:19)
[2018-05-19 09:21] LABS: BASOPHILS % (AUTO) 1.5 % (0.0-2.0); EOSINOPHILS % (AUTO) 4.3 % (0.0-3.0); HEMATOCRIT 38.2 % (42.0-52.0); HEMOGLOBIN 13.5 G/DL (14.2-18.0); LYMPHOCYTES % (AUTO) 28.4 % (20.0-45.0); MEAN CORPUSCULAR VOLUME 88 FL (80-99); MONOCYTES % (AUTO) 6.1 % (1.0-10.0); NEUTROPHILS % (AUTO) 59.8 % (45.0-75.0); PLATELET COUNT 144 K/UL (150-450); RED BLOOD COUNT 4.32 M/UL (4.70-6.10); RED CELL DISTRIBUTION WIDTH 11.5 % (11.6-14.8); WHITE BLOOD COUNT 4.1 K/UL (4.8-10.8)
[2018-05-19 09:36] LABS: ANION GAP 8 mmol/L (5-15); BLOOD UREA NITROGEN 20 mg/dL (7-18); CALCIUM 8.4 MG/DL (8.5-10.1); CARBON DIOXIDE 24 MMOL/L (21-32); CHLORIDE 106 MMOL/L (98-107); CREATININE 1.4 MG/DL (0.55-1.30); POTASSIUM 4.1 MMOL/L (3.5-5.1); SODIUM 138 MMOL/L (136-145)
--- NOTE | 2018-05-19 10:18 | Cardiology Progress Note ---
Assessment/Plan Status: stable Assessment/Plan Assessment Chest pain CKD DM Hyperglycemia Dizziness Plan 1) Serial troponin and EKG 2) Aspirin 3) Nitro prn chest pain 4) Stress test - lexiscan cardiolite after ACS negative (risk factor DM) 5) Statin 6) Strict glucose control Subjective Cardiovascular: Reports: no symptoms Respiratory: Reports: no symptoms Gastrointestinal/Abdominal: Reports: no symptoms Genitourinary: Reports: no symptoms Subjective No acute events, no chest pain. Blood pressure elevated Objective Last 24 Hour Vital Signs Date Time Temp Pulse Resp B/P (MAP) Pulse Ox O2 Delivery O2 Flow Rate FiO2 05/19/18 09:19 170/81 05/19/18 08:00 97.7 73 18 170/81 97 Room Air 97.7 05/19/18 07:46 74 18 Room Air 21 05/19/18 04:00 97.3 76 21 159/84 93 Room Air 97.3 05/19/18 04:00 72 05/19/18 00:00 73 05/19/18 00:00 97.0 72 21 156/82 97 Room Air 97.0 05/18/18 20:00 72 05/18/18 20:00 69 16 Room Air 21 05/18/18 20:00 97.3 68 20 170/80 96 Room Air 97.3 05/18/18 18:34 164/85 05/18/18 16:00 85 05/18/18 16:00 97.6 72 20 164/85 98 Room Air 97.6 05/18/18 12:00 68 05/18/18 12:00 97.7 68 20 152/80 98 Room Air 97.7 General Appearance: no apparent distress EENT: PERRL/EOMI Neck: non-tender Rhythm: NSR Cardiovascular: normal peripheral pulses Respiratory/Chest: chest wall non-tender Abdomen: normal bowel sounds Extremities: normal range of motion 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 Intake and Output 05/18/18 05/19/18 19:00 07:00 Intake Total 925 ml Output Total 250 ml Balance 675 ml Intake Oral 925 ml Output Urine Total 250 ml # Voids 1 2 Laboratory Tests Test 05/18/18 18:10 05/19/18 08:30 Sodium Level 137 MMOL/L (136-145) 138 MMOL/L (136-145) Potassium Level 4.2 MMOL/L (3.5-5.1) 4.1 MMOL/L (3.5-5.1) Chloride Level 104 MMOL/L (98-107) 106 MMOL/L (98-107) Carbon Dioxide Level 25 MMOL/L (21-32) 24 MMOL/L (21-32) Anion Gap 8 mmol/L (5-15) 8 mmol/L (5-15) Blood Urea Nitrogen 22 mg/dL (7-18) H 20 mg/dL (7-18) H Creatinine 1.6 MG/DL (0.55-1.30) H 1.4 MG/DL (0.55-1.30) H Estimat Glomerular Filtration Rate mL/min (>60) mL/min (>60) Glucose Level 297 MG/DL (74-106) #H 189 MG/DL (74-106) #H Calcium Level 8.6 MG/DL (8.5-10.1) 8.4 MG/DL (8.5-10.1) L White Blood Count 4.1 K/UL (4.8-10.8) L Red Blood Count 4.32 M/UL (4.70-6.10) L Hemoglobin 13.5 G/DL (14.2-18.0) L Hematocrit 38.2 % (42.0-52.0) L Mean Corpuscular Volume 88 FL (80-99) Mean Corpuscular Hemoglobin 31.2 PG (27.0-31.0) H Mean Corpuscular Hemoglobin Concent 35.2 G/DL (32.0-36.0) Red Cell Distribution Width 11.5 % (11.6-14.8) L Platelet Count 144 K/UL (150-450) L Mean Platelet Volume 8.6 FL (6.5-10.1) Neutrophils (%) (Auto) 59.8 % (45.0-75.0) Lymphocytes (%) (Auto) 28.4 % (20.0-45.0) Monocytes (%) (Auto) 6.1 % (1.0-10.0) Eosinophils (%) (Auto) 4.3 % (0.0-3.0) H Basophils (%) (Auto) 1.5 % (0.0-2.0) Hemoglobin A1c 9.4 % (4.3-6.0) H Braxton Cabrales M.D. May 19, 2018 10:18
--- NOTE | 2018-05-19 11:33 | Internal Med Progress Note ---
Subjective Date of Service: May 19, 2018 Physician Name Krunal Rose Attending Physician Levon Ragland MD Current Medications Medications (Trade) Dose Ordered Sig/Golden Route PRN Reason Start Time Stop Time Status Last Admin Dose Admin Acetaminophen (Tylenol) 650 mg Q4H PRN ORAL fever (temp>100.5F) 05/17/18 14:30 06/16/18 14:29 Albuterol/ Ipratropium (Albuterol/ Ipratropium) 3 ml Q4H PRN HHN Shortness of Breath 05/17/18 14:30 05/22/18 14:29 Amlodipine Besylate (Norvasc) 10 mg DAILY ORAL 05/19/18 10:30 06/18/18 10:29 05/19/18 11:01 Aspirin (ASA) 162 mg DAILY ORAL 05/18/18 09:00 06/17/18 08:59 05/19/18 09:18 Dextrose (Dextrose 50%) 25 ml STAT PRN IV Hypoglycemia 05/17/18 14:45 06/16/18 14:44 Dextrose (Dextrose 50%) 25 ml STAT PRN IV Hypoglycemia 05/18/18 17:30 06/17/18 17:29 Dextrose (Dextrose 50%) 50 ml STAT PRN IV Hypoglycemia 05/17/18 14:30 06/16/18 14:29 Dextrose (Dextrose 50%) 50 ml STAT PRN IV Hypoglycemia 05/18/18 17:30 06/17/18 17:29 Diltiazem HCl (Cardizem) 10 mg Q1H PRN IV heart rate more than 120, 05/17/18 14:30 06/16/18 14:29 Docusate Sodium (Colace) 100 mg TWICE A DAY ORAL 05/18/18 18:00 06/17/18 17:59 05/19/18 09:19 Enalaprilat (Vasotec) 2.5 mg Q6H PRN IV sbp more than 160 05/17/18 14:30 06/16/18 14:29 05/18/18 18:34 HCTZ/Losartan Potassium (Hyzaar 50-12.5) 1 tab DAILY ORAL 05/19/18 09:00 06/18/18 08:59 05/19/18 09:19 Heparin Sodium (Porcine) (Heparin 5000 units/ml) 5,000 units EVERY 8 HOURS SUBQ 05/17/18 22:00 06/16/18 21:59 05/19/18 07:11 Insulin Aspart (NovoLOG) BEFORE MEALS AND HS SUBQ 05/17/18 16:30 06/16/18 16:29 05/19/18 07:09 Insulin Aspart (NovoLOG) 5 units NOVOTIAC SUBQ 05/19/18 06:30 06/18/18 06:29 05/18/18 18:36 Insulin Detemir (Levemir) 10 units BEDTIME SUBQ 05/18/18 21:00 06/17/18 20:59 05/18/18 21:37 Ketorolac Tromethamine (Toradol 30mg) 30 mg Q6H PRN IV moderate pain ( 4-6) 05/17/18 14:30 05/22/18 14:29 05/17/18 18:21 Mirtazapine (Remeron) 7.5 mg QHS PRN ORAL Insomnia 05/18/18 21:00 06/17/18 20:59 Morphine Sulfate (Morphine Sulfate) 2 mg Q4H PRN IVP severe Pain (Pain Scale 7-10) 05/17/18 14:30 05/24/18 14:29 05/17/18 23:29 Nitroglycerin (Ntg) 0.4 mg Q5M PRN SL Prn Chest Pain 05/17/18 14:30 06/16/18 14:29 Ondansetron HCl (Zofran) 4 mg Q6H PRN IVP Nausea & Vomiting 05/17/18 14:30 06/16/18 14:29 Pantoprazole (Protonix) 40 mg DAILY ORAL 05/18/18 09:00 06/17/18 08:59 05/19/18 09:19 Polyethylene Glycol (Miralax) 17 gm DAILYPRN PRN ORAL Constipation 05/17/18 14:30 06/16/18 14:29 05/18/18 21:55 Regadenoson (Lexiscan) 0.4 mg ONCE PRN IV cardiology 05/19/18 02:45 06/18/18 02:44 Allergies: Coded Allergies: No Known Allergies (Verified , 11/16/07) ROS Limited/Unobtainable: No Constitutional: Reports: no symptoms HEENT: Reports: no symptoms Cardiovascular: Reports: no symptoms Respiratory: Reports: no symptoms Gastrointestinal/Abdominal: Reports: no symptoms Genitourinary: Reports: no symptoms Neurologic/Psychiatric: Reports: no symptoms Subjective 78 YO F admitted with chest pain. Await cardiac stress test. Cover for Int Med -Dr Ragland. Patient asking to leave home Objective Last Vital Signs Date Time Temp Pulse Resp B/P (MAP) Pulse Ox O2 Delivery O2 Flow Rate FiO2 05/19/18 11:01 73 166/83 05/19/18 08:00 97.7 18 97 Room Air 97.7 05/19/18 07:46 21 Laboratory Tests Test 05/18/18 18:10 05/19/18 08:30 Sodium Level 137 MMOL/L (136-145) 138 MMOL/L (136-145) Potassium Level 4.2 MMOL/L (3.5-5.1) 4.1 MMOL/L (3.5-5.1) Chloride Level 104 MMOL/L (98-107) 106 MMOL/L (98-107) Carbon Dioxide Level 25 MMOL/L (21-32) 24 MMOL/L (21-32) Anion Gap 8 mmol/L (5-15) 8 mmol/L (5-15) Blood Urea Nitrogen 22 mg/dL (7-18) H 20 mg/dL (7-18) H Creatinine 1.6 MG/DL (0.55-1.30) H 1.4 MG/DL (0.55-1.30) H Estimat Glomerular Filtration Rate mL/min (>60) mL/min (>60) Glucose Level 297 MG/DL (74-106) #H 189 MG/DL (74-106) #H Calcium Level 8.6 MG/DL (8.5-10.1) 8.4 MG/DL (8.5-10.1) L White Blood Count 4.1 K/UL (4.8-10.8) L Red Blood Count 4.32 M/UL (4.70-6.10) L Hemoglobin 13.5 G/DL (14.2-18.0) L Hematocrit 38.2 % (42.0-52.0) L Mean Corpuscular Volume 88 FL (80-99) Mean Corpuscular Hemoglobin 31.2 PG (27.0-31.0) H Mean Corpuscular Hemoglobin Concent 35.2 G/DL (32.0-36.0) Red Cell Distribution Width 11.5 % (11.6-14.8) L Platelet Count 144 K/UL (150-450) L Mean Platelet Volume 8.6 FL (6.5-10.1) Neutrophils (%) (Auto) 59.8 % (45.0-75.0) Lymphocytes (%) (Auto) 28.4 % (20.0-45.0) Monocytes (%) (Auto) 6.1 % (1.0-10.0) Eosinophils (%) (Auto) 4.3 % (0.0-3.0) H Basophils (%) (Auto) 1.5 % (0.0-2.0) Hemoglobin A1c 9.4 % (4.3-6.0) H Intake and Output 05/18/18 05/19/18 19:00 07:00 Intake Total 925 ml Output Total 250 ml Balance 675 ml Intake Oral 925 ml Output Urine Total 250 ml # Voids 1 2 Objective General Appearance: WD/WN, no apparent distress, alert EENT: PERRL/EOMI, normal ENT inspection, TMs normal Neck: non-tender, normal alignment, supple, normal inspection Cardiovascular: normal peripheral pulses, normal rate, regular rhythm, no gallop/murmur, no JVD Respiratory/Chest: chest wall non-tender, lungs clear, normal breath sounds, no respiratory distress, no accessory muscle use Abdomen: normal bowel sounds, non tender, soft, no organomegaly, no mass, abnormal bowel sounds Extremities: normal range of motion, non-tender Edema: trace edema, mild edema 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 Troponin neg X3. Cardiac stress test to be scheduled as an outpatient. (2) Edema (3) Vertigo (4) Diabetes mellitus type II, uncontrolled Assessment & Plan: See endocrinology note. Continue levemir and novolog sliding scale. (5) Hypercholesteremia (6) Chronic renal failure, stage 3 (moderate) (7) Gout (8) GERD (gastroesophageal reflux disease) (9) HTN (hypertension) Assessment & Plan: Continue vasotec and cardizem (10) CAD (coronary artery disease) Status: progressing Assessment/Plan D/C home today; F/U Dr Ragland for scheduling of outpatient cardiac stress test Krunal Rose MD May 19, 2018 11:33
[2018-05-19 12:00] VITALS: BP 160/75
[2018-05-19] MEDS ORDERED: ASPIRIN81 MG ORAL (12:07)
--- NOTE | 2018-05-19 13:26 | General Progress Note ---
Assessment/Plan Problem List: (1) CAD (coronary artery disease) ICD Codes: I25.10 - Atherosclerotic heart disease of [place] coronary artery without angina pectoris SNOMED: 52215901 (2) HTN (hypertension) ICD Codes: I10 - Essential (primary) hypertension SNOMED: 36824791 (3) Chronic renal failure, stage 3 (moderate) ICD Codes: N18.3 - Chronic kidney disease, stage 3 (moderate) SNOMED: 05780572, 867699578 (4) Diabetes mellitus ICD Codes: E11.9 - Type 2 diabetes mellitus without complications SNOMED: 82995878 Assessment/Plan increase Levemir to 15 units qhs increase Novolog to 8 units ac tid + NISS Subjective Allergies: Coded Allergies: No Known Allergies (Verified , 11/16/07) All Systems: reviewed and negative except above Subjective events noted Objective Last 24 Hour Vital Signs Date Time Temp Pulse Resp B/P (MAP) Pulse Ox O2 Delivery O2 Flow Rate FiO2 05/19/18 12:00 97.7 72 18 160/75 97 Room Air 97.7 05/19/18 11:01 73 166/83 05/19/18 09:19 170/81 05/19/18 08:00 97.7 73 18 170/81 97 Room Air 97.7 05/19/18 08:00 73 05/19/18 07:46 74 18 Room Air 21 05/19/18 04:00 97.3 76 21 159/84 93 Room Air 97.3 05/19/18 04:00 72 05/19/18 00:00 73 05/19/18 00:00 97.0 72 21 156/82 97 Room Air 97.0 05/18/18 20:00 72 05/18/18 20:00 69 16 Room Air 21 05/18/18 20:00 97.3 68 20 170/80 96 Room Air 97.3 05/18/18 18:34 164/85 05/18/18 16:00 85 05/18/18 16:00 97.6 72 20 164/85 98 Room Air 97.6 Intake and Output 05/18/18 05/19/18 19:00 07:00 Intake Total 925 ml Output Total 250 ml Balance 675 ml Intake Oral 925 ml Output Urine Total 250 ml # Voids 1 2 Laboratory Tests 05/18/18 18:10: Sodium Level 137, Potassium Level 4.2, Chloride Level 104, Carbon Dioxide Level 25, Anion Gap 8, Blood Urea Nitrogen 22H, Creatinine 1.6H, Estimat Glomerular Filtration Rate , Glucose Level 297#H, Calcium Level 8.6 05/19/18 08:30: Sodium Level 138, Potassium Level 4.1, Chloride Level 106, Carbon Dioxide Level 24, Anion Gap 8, Blood Urea Nitrogen 20H, Creatinine 1.4H, Estimat Glomerular Filtration Rate , Glucose Level 189#H, Calcium Level 8.4L, White Blood Count 4.1L, Red Blood Count 4.32L, Hemoglobin 13.5L, Hematocrit 38.2L, Mean Corpuscular Volume 88, Mean Corpuscular Hemoglobin 31.2H, Mean Corpuscular Hemoglobin Concent 35.2, Red Cell Distribution Width 11.5L, Platelet Count 144L , Mean Platelet Volume 8.6, Neutrophils (%) (Auto) 59.8, Lymphocytes (%) (Auto) 28.4, Monocytes (%) (Auto) 6.1, Eosinophils (%) (Auto) 4.3H, Basophils (%) (Auto ) 1.5, Hemoglobin A1c 9.4H Height (Feet): 5 Height (Inches): 6.00 Weight (Pounds): 176 General Appearance: no apparent distress Neck: normal alignment Cardiovascular: normal rate Respiratory/Chest: lungs clear Abdomen: normal bowel sounds Objective Current Medications Medications (Trade) Dose Ordered Sig/Golden Route PRN Reason Start Time Stop Time Status Last Admin Dose Admin Acetaminophen (Tylenol) 650 mg Q4H PRN ORAL fever (temp>100.5F) 05/17/18 14:30 06/16/18 14:29 Albuterol/ Ipratropium (Albuterol/ Ipratropium) 3 ml Q4H PRN HHN Shortness of Breath 05/17/18 14:30 05/22/18 14:29 Amlodipine Besylate (Norvasc) 10 mg DAILY ORAL 05/19/18 10:30 06/18/18 10:29 05/19/18 11:01 Aspirin (ASA) 162 mg DAILY ORAL 05/18/18 09:00 06/17/18 08:59 05/19/18 09:18 Dextrose (Dextrose 50%) 25 ml STAT PRN IV Hypoglycemia 05/17/18 14:45 06/16/18 14:44 Dextrose (Dextrose 50%) 25 ml STAT PRN IV Hypoglycemia 05/18/18 17:30 06/17/18 17:29 Dextrose (Dextrose 50%) 50 ml STAT PRN IV Hypoglycemia 05/17/18 14:30 06/16/18 14:29 Dextrose (Dextrose 50%) 50 ml STAT PRN IV Hypoglycemia 05/18/18 17:30 06/17/18 17:29 Diltiazem HCl (Cardizem) 10 mg Q1H PRN IV heart rate more than 120, 05/17/18 14:30 06/16/18 14:29 Docusate Sodium (Colace) 100 mg TWICE A DAY ORAL 05/18/18 18:00 06/17/18 17:59 05/19/18 09:19 Enalaprilat (Vasotec) 2.5 mg Q6H PRN IV sbp more than 160 05/17/18 14:30 06/16/18 14:29 05/18/18 18:34 HCTZ/Losartan Potassium (Hyzaar 50-12.5) 1 tab DAILY ORAL 05/19/18 09:00 06/18/18 08:59 05/19/18 09:19 Heparin Sodium (Porcine) (Heparin 5000 units/ml) 5,000 units EVERY 8 HOURS SUBQ 05/17/18 22:00 06/16/18 21:59 05/19/18 07:11 Insulin Aspart (NovoLOG) BEFORE MEALS AND HS SUBQ 05/17/18 16:30 06/16/18 16:29 05/19/18 12:07 Insulin Aspart (NovoLOG) 5 units NOVOTIAC SUBQ 05/19/18 06:30 06/18/18 06:29 05/19/18 12:06 Insulin Detemir (Levemir) 10 units BEDTIME SUBQ 05/18/18 21:00 06/17/18 20:59 05/18/18 21:37 Ketorolac Tromethamine (Toradol 30mg) 30 mg Q6H PRN IV moderate pain ( 4-6) 05/17/18 14:30 05/22/18 14:29 05/17/18 18:21 Mirtazapine (Remeron) 7.5 mg QHS PRN ORAL Insomnia 05/18/18 21:00 06/17/18 20:59 Morphine Sulfate (Morphine Sulfate) 2 mg Q4H PRN IVP severe Pain (Pain Scale 7-10) 05/17/18 14:30 05/24/18 14:29 05/17/18 23:29 Nitroglycerin (Ntg) 0.4 mg Q5M PRN SL Prn Chest Pain 05/17/18 14:30 06/16/18 14:29 Ondansetron HCl (Zofran) 4 mg Q6H PRN IVP Nausea & Vomiting 05/17/18 14:30 06/16/18 14:29 Pantoprazole (Protonix) 40 mg DAILY ORAL 05/18/18 09:00 06/17/18 08:59 05/19/18 09:19 Polyethylene Glycol (Miralax) 17 gm DAILYPRN PRN ORAL Constipation 05/17/18 14:30 06/16/18 14:29 05/18/18 21:55 Regadenoson (Lexiscan) 0.4 mg ONCE PRN IV cardiology 05/19/18 02:45 06/18/18 02:44 Item Value Date Time Bedside Blood Glucose 308 mg/dl H 05/19/18 1207 Bedside Blood Glucose 180 mg/dl H 05/19/18 0709 Bedside Blood Glucose 180 mg/dl H 05/19/18 0630 Bedside Blood Glucose 305 mg/dl H 05/18/18 2139 Segundo Dejesus MD May 19, 2018 13:26
[2018-05-19] MEDS ORDERED: NovoLOG Insulin Flexpen SUBQ SCH (16:50)
[2018-05-19] MEDS ORDERED: Levemir Flexpen SUBQ SCH (21:00)
--- NOTE | 2018-05-21 10:08 | Diagnostic Imaging Report ---
APPROVED REPORT CPT Code: 78372 Present Symptoms Comments: Swelling BILATERAL: Imaging reveals a patent deep venous system bilaterally. There is no evidence of thrombus within the femoral, popliteal or tibial segments. The greater saphenous veins are also within normal limits. Doppler indicates normal spontaneous flow within these segments.
--- NOTE | 2018-05-21 10:49 | Discharge Summary ---
Discharge Summary Discharge Summary _ DATE OF ADMISSION: 05/17/2018 DATE OF DISCHARGE: 05/19/2018 REASON FOR ADMISSION: 78 years old male with past medical history significant for hypertension, diabetes mellitus ,presented to the emergency room from [facility] for evaluation. Patient presented with symptoms of dizziness , midsternal chest tightness. He denied shortness of breath. He denied feve,r chills Upon evaluation blood sugar was critically high. In emergency department vital signs revealed hypertension with blood pressure 160/80 , pulse oximetry was stable on room air Troponin was negative EKG revealed normal sinus rhythm, no acute ischemic changes Blood glucose was over 500, no evidence of DKA , stable bicarbonate and anion gap. 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 Zuniga psychiatrist [employer] Dr. Dejesus [facility] COURSE: Patient admitted to telemetry floor. Manager System closely followed. Serial troponin were negative. EKG revealed no acute ischemic changes. Thus, patient was ruled out for acute coronary syndrome. Manager System closely followed patient. Patient was started on Aspirin. Nitroglycerin provided as needed for chest pain. Lipid panel revealed elevated triglycerides and LDL, patient started on statin. Patient was counseled on low-fat low-cholesterol diabetic diet. Blood pressure was managed with calcium channel renae and ARB/ hydrochlorothiazide combo, remained stable. Hemoglobin A1c- 9.4 not at goal [employer] was consulted Blood sugar was managed with the pre-meal short-acting insulin, long-acting Levemir and sliding scale of insulin as needed . [employer] closely followed and uptitrated both Levemir and pre-meal insulin. Patient will need close monitoring of blood sugar as outpatient. Venous duplex bilateral lower extremity was negative. Supplemental oxygen was on standby as needed to keep pulse oximetry above 92% ; pulse oximetry was stable on room air. Pain management provided Pain was addressed and controlled Renal parameters and electrolytes were closely monitored , and nephrotoxins were avoided. Electrolytes were corrected as needed. Creatinine down to 1.4. Patient had evidence of chronic kidney disease stage III, avoid nephrotoxic in future. Psychiatrist closely followed and diagnosed patient with a major depressive disorder and anxiety disorder. Patient was started on Remeron. Reality orientation and supportive therapy provided. Patient was treated symptomatically. Patient was working with physical and occupational therapists. Dizziness resolved, possibly due to severe hyperglycemia FINAL DIAGNOSES: Diabetes mellitus out of control Hypertension Hypercholesterolemia Chest pain acute coronary syndrome was ruled out Chronic kidney disease, stage III Major depressive disorder Anxiety disorder DISCHARGE MEDICATIONS: See Medication Reconciliation list. DISCHARGE INSTRUCTIONS: Patient was discharged home. Patient to follow-up with primary care provider to schedule outpatient stress test I have been assigned to dictate discharge summary for this account. I was not involved in the patient's management. Lisbet Flores NP May 21, 2018 10:49
--- NOTE | 2018-05-21 13:07 | Cardiology Report ---
APPROVED REPORT EXAM: Two-dimensional and M-mode echocardiogram with Doppler and color Doppler. INDICATION Left Ventricular function M-Mode DIMENSIONS IVSd1.6 (0.7-1.1cm)Left Atrium (MM)4.1 (1.6-4.0cm) LVDd5.3 (3.5-5.6cm)Aortic Root2.9 (2.0-3.7cm) PWd1.2 (0.7-1.1cm)Aortic Cusp Exc.1.5 (1.5-2.0cm) LVDs3.3 (2.5-4.0cm) PWs1.5 cm Normal left ventricular chamber size, systolic function and wall motion . Left ventricular ejection fraction estimated to be 60-65 %. Mild left ventricular hypertrophy by 2-D. No evidence of pericardial effusion All other cardiac chamber sizes are within normal limits. Focal aortic valve sclerosis with adequate cusp excursion. Pulmonic valve not well visualized. Normal tricuspid valve structure. IVC at normal size with physiological collapse . A color flow and spectral Doppler study was performed and revealed: No aortic insufficiency. Moderate mitral regurgitation . Mitral diastolic velocities suggest reduced left ventricular relaxation c/w mild LV diastolic dysfunction (Grade I ). Mild tricuspid regurgitation. Tricuspid systolic velocities suggests peak right ventricular systolic pressure of 24mmHg. Trace Pulmonic regurgitation present.
== END 2018-05-19 14:33 | disposition home or self-care (01) | DRG 639 ==
LOC: EDBD 11:21 → EMR 12:34 → 2E 12:50 → EDBEDREQ 15:33 → 2E 05-18 11:04
DX: E11.65 Type 2 diabetes mellitus with hyperglycemia (principal); R07.9 Chest pain, unspecified; R42 Dizziness and giddiness; Z79.4 Long term (current) use of insulin; E78.00 Pure hypercholesterolemia, unspecified; I12.9 Hypertensive chronic kidney disease with stage 1 through stage 4 chronic kidney disease, or unspecified chronic kidney disease; E11.22 Type 2 diabetes mellitus with diabetic chronic kidney disease; N18.3 Chronic kidney disease, stage 3 (moderate); I25.10 Atherosclerotic heart disease of native coronary artery without angina pectoris; M10.9 Gout, unspecified; K21.9 Gastro-esophageal reflux disease without esophagitis; F32.9 Major depressive disorder, single episode, unspecified; F41.9 Anxiety disorder, unspecified
CPT/HCPCS: 36415; 71045; 80048; 80053; 80061; 81003; 82009; 82962; 83036; 83735; 83880; 84443; 84484; 85025; 85610; 85730; 86140; 93005; 93306; 93970; 94664; 99285; J1815; J2785; S5561